=== PATIENT | female | born 1955 | race Caucasian/White ===

== ENCOUNTER → 2017-01-31 | Outpatient (CLI) | payer BC, OTHER ==
--- NOTE | 2017-01-31 15:12 | REPMRS ---
Patient History The patient states she had a clinical breast exam in 06/27 Patient is postmenopausal. Family history of unknown cancer in father at age 50 or over. Took hormonal contraceptives for 4 years. Taking unspecified hormones for 11 years. Digital Woman Screen Mammo: January 31, 2017 - Exam #: [id number] Bilateral CC and MLO view(s) were taken. Technologist: Reshma Barker, Technologist Prior study comparison: January 20, 2016, digital woman screen mammo performed at [facility]. January 13, 2015, digital woman screen mammo performed at [facility]. January 11, 2014, bilateral bilat screen digital mammo, performed at [facility] ([facility]). FINDINGS: There are scattered fibroglandular densities. There has been no change in the appearance of the mammogram from the prior studies. There is a mild amount of scattered fibroglandular density which is fairly symmetric. There is no interval development of dominant mass, architectural distortion, or clustered microcalcification suggestive of malignancy. ASSESSMENT: BI-RADS/ACR category 1 mammogram. Negative. Recommendation Routine screening mammogram in 1 year (for women over age 40). This mammogram was interpreted with the aid of an FDA-approved computer-aided dectection system. Electronically Signed By: Jassi Montes MD 01/31/17 [id number]
== END ==
LOC: M WHC 14:15
PROVIDERS: ATTEND Obstetrics & Gynecology
DX: Z12.31 Encounter for screening mammogram for malignant neoplasm of breast (principal); Z78.0 Asymptomatic menopausal state; Z92.0 Personal history of contraception

== ENCOUNTER → 2018-02-01 | Outpatient (CLI) | payer BC | LOC: M WHC 10:51 | DX: Z12.39 Encounter for other screening for malignant neoplasm of breast (principal) ==

== ENCOUNTER → 2018-05-02 | Outpatient (CLI) | payer BC | LOC: M WUC 12:25 | DX: M79.645 Pain in left finger(s) (principal) | CPT/HCPCS: 73140 ==

== ENCOUNTER → 2018-06-28 | Outpatient (REF) | payer BC ==
[2018-06-28 18:20] LABS: APPEARANCE, URINE CLEAR (CLEAR); BACTERIA, URINE AUTO 1+ (NEGATIVE); BILIRUBIN, URINE AUTO NEGATIVE (NEGATIVE); BLOOD, URINE BLOOD NEGATIVE (NEGATIVE); COLOR, URINE STRAW (YELLOW); GLUCOSE, URINE (UA) AUTO NEGATIVE (NEGATIVE); KETONE, URINE AUTO NEGATIVE (NEGATIVE); LEUKOCYTE ESTERASE, URINE AUTO NEGATIVE (NEGATIVE); NITRITE, URINE AUTO NEGATIVE (NEGATIVE); PROTEIN, URINE AUTO NEGATIVE (NEGATIVE); RBC, URINE AUTO 0 /HPF (0-3); SPECIFIC GRAVITY URINE AUTO 1.003 (1.002-1.035); SQUAMOUS EPITHELIAL CELL UR AU 1 /HPF (0-6); UROBILINOGEN, URINE AUTO 0.2 mg/dL (0.0-2.0); WBC, URINE AUTO 0 /HPF (0-3)
== END ==
LOC: M LAB REF 17:14
DX: N39.46 Mixed incontinence (principal)
CPT/HCPCS: 81001

== ENCOUNTER → 2019-02-02 | Outpatient (CLI) | payer BC ==
--- NOTE | 2019-02-02 14:28 | REPMRS ---
Patient History The patient states she had a clinical breast exam in 06/2018 Patient is postmenopausal. Took hormonal contraceptives for 4 years. Taking unspecified hormones for 13 years. 3D TOMOSYNTHESIS WAS PERFORMED. Digital Woman Screen Mammo: February 02, 2019 - Exam #: [id number] Bilateral CC and MLO view(s) were taken. Technologist: Reshma Barker, Technologist Prior study comparison: February 01, 2018, digital woman screen mammo performed at [facility]. January 31, 2017, digital woman screen mammo performed at [facility]. FINDINGS: The breast tissue is heterogeneously dense. This may lower the sensitivity of mammography. There has been no change in the appearance of the mammogram from the prior studies. There is a moderate amount of residual fibroglandular tissue which is fairly symmetric. There is no interval development of dominant mass, areas of architectural distortion, or clustered microcalcification typical of malignancy. Assessment: BI-RADS/ACR category 1 mammogram. Negative Mammogram. Recommendation Routine screening mammogram in 1 year (for women over age 40). This mammogram was interpreted with the aid of an FDA-approved computer-aided dectection system. Electronically Signed By: Blake George MD 02/02/19 [id number]
== END ==
LOC: M WHC 12:58
PROVIDERS: ATTEND Obstetrics & Gynecology
DX: Z12.31 Encounter for screening mammogram for malignant neoplasm of breast (principal)

== ENCOUNTER → 2019-07-11 | Outpatient (REF) | payer OTHER ==
[2019-07-11 12:48] LABS: BASO # 0.1 10^3/uL (0.0-0.2); BASO % 1.8 % (0.0-1.0); EOS # 0.2 10^3/uL (0.0-0.5); EOS % 3.6 % (0.0-3.0); HEMATOCRIT 43.8 % (36.0-47.0); HEMOGLOBIN 14.8 g/dl (12.0-15.5); LYMPH % 31.6 % (24.0-44.0); MEAN CORPUSCULAR HEMOGLOBIN 34.7 pg (27.0-33.0); MEAN CORPUSCULAR HGB CONC 33.8 g/dl (32.0-36.5); MEAN CORPUSCULAR VOLUME 102.6 fl (80.0-96.0); MONO # 0.8 10^3/uL (0.0-0.8); MONO % 13.1 % (0.0-5.0); NEUTROPHILS % 48.9 % (36.0-66.0); PLATELET COUNT, AUTOMATED 260 10^3/uL (150-450); RED BLOOD COUNT 4.27 10^6/uL (4.00-5.40); WHITE BLOOD COUNT 6.2 10^3/uL (4.0-10.0)
[2019-07-11 13:21] LABS: ALBUMIN 3.6 GM/DL (3.2-5.2); ALT/SGPT 28 U/L (12-78); BILIRUBIN,TOTAL 0.7 MG/DL (0.2-1.0); BLOOD UREA NITROGEN 13 MG/DL (7-18); CALCIUM LEVEL 8.9 MG/DL (8.8-10.2); CARBON DIOXIDE LEVEL 28 MEQ/L (21-32); CHLORIDE LEVEL 109 MEQ/L (98-107); CHOLESTEROL LEVEL 223 MG/DL (<200); CHOLESTEROL RISK RATIO 3.539 (<5); CREATININE FOR GFR 0.83 MG/DL (0.55-1.30); GLOMERULAR FILTRATION RATE > 60.0 (>45); GLUCOSE, FASTING 83 MG/DL (70-100); HDL CHOLESTEROL 63 MG/DL (>40); LDL CHOLESTEROL 133 MG/DL (<100); NON-HDL-C 160 MG/DL; POTASSIUM SERUM 4.2 MEQ/L (3.5-5.1); SODIUM LEVEL 141 MEQ/L (136-145); TOTAL PROTEIN 6.7 GM/DL (6.4-8.2); TRIGLYCERIDES LEVEL 134 MG/DL (<150)
== END ==
LOC: M SFHCADAM 11:11
PROVIDERS: ATTEND Family Medicine
DX: Z00.00 Encounter for general adult medical examination without abnormal findings (principal)

== ENCOUNTER → 2019-07-25 | Outpatient (CLI) | payer BC, OTHER ==
--- NOTE | 2019-07-26 05:33 | REP ---
Clinical: Lung screening. History smoking. Comparison: None Technique: Axial low-dose noncontrast images from the thoracic inlet to the upper abdomen using lung screening technique. Findings: Mild predominantly biapical scarring is appreciated. There is a 13 mm noncalcified nodular density in the left upper lobe (images 17 - 21). No consolidation. No pleural effusion/reaction or pneumothorax. Tracheobronchial tree is patent. Mediastinum demonstrates mild atherosclerotic changes of the coronary arteries without cardiomegaly. Impression: Lung-RADS category IV-a. 13 mm noncalcified nodular density in the left upper lobe is identified. 3-month follow-up chest CT is recommended. PET CT may be considered for further investigation as well. Electronically Signed by Jack Arthur MD 07/26/2019 05:25 A
== END ==
LOC: M RAD 09:43
PROVIDERS: ATTEND Family Medicine
DX: Z12.2 Encounter for screening for malignant neoplasm of respiratory organs (principal); F17.210 Nicotine dependence, cigarettes, uncomplicated

== ENCOUNTER → 2019-10-22 | Outpatient (REF) | payer OTHER ==
[2019-10-22 14:16] LABS: BLOOD UREA NITROGEN 17 MG/DL (7-18); CALCIUM LEVEL 9.3 MG/DL (8.8-10.2); CARBON DIOXIDE LEVEL 28 MEQ/L (21-32); CHLORIDE LEVEL 104 MEQ/L (98-107); CHOLESTEROL LEVEL 175 MG/DL (<200); CHOLESTEROL RISK RATIO 3.365 (<5); CREATININE FOR GFR 0.84 MG/DL (0.55-1.30); FOLATE > 24.0 NG/ML (>5.4); GLOMERULAR FILTRATION RATE > 60.0 (>45); GLUCOSE, FASTING 89 MG/DL (70-100); HDL CHOLESTEROL 52 MG/DL (>40); LDL CHOLESTEROL 102 MG/DL (<100); NON-HDL-C 123 MG/DL; POTASSIUM SERUM 3.6 MEQ/L (3.5-5.1); SODIUM LEVEL 139 MEQ/L (136-145); TRIGLYCERIDES LEVEL 107 MG/DL (<150); VITAMIN B12 LEVEL 521 PG/ML (247-911)
== END ==
LOC: M SFHCADAM 10:55
PROVIDERS: ATTEND Family Medicine
DX: D75.89 Other specified diseases of blood and blood-forming organs (principal); E78.5 Hyperlipidemia, unspecified; R91.1 Solitary pulmonary nodule

== ENCOUNTER → 2019-10-26 | Outpatient (CLI) | payer BC, OTHER ==
[~2019-10-26] MED LIST: ISOVUE-370 76% 100ML VIAL (Q9967) As Ordered ONE
--- NOTE | 2019-10-26 18:41 | REP ---
Clinical: Follow-up pulmonary nodule. Comparison: 07/25/2019. Findings: 13 mm nodular density in the left apex with subtle spiculated margins (images 22 - 27) is unchanged from prior examination. Stable chronic emphysematous changes and scattered scarring are also identified and unchanged. No further acute consolidation, nodule or mass lesion. No effusion. No pneumothorax. No significant adenopathy. Atherosclerotic changes to the aorta and coronary arteries noted without aortic aneurysm/dissection or cardiomegaly. No pericardial effusion. Skeletal structures without acute osseous abnormality. 1.3 cm left adrenal nodule is nonspecific. Impression: 1. Left upper lobe lesion measures 13 mm and is unchanged by sort term followup. Consider PET-CT or tissue sampling for further evaluation. 2. 1.3 cm nonspecific adrenal nodule may warrant pre/post contrast CT of the abdomen. Electronically Signed by Jack Arthur MD 10/26/2019 06:33 P
== END ==
LOC: M RAD 16:20
PROVIDERS: ATTEND Family Medicine
DX: R91.1 Solitary pulmonary nodule (principal)
CPT/HCPCS: 71260; Q9967

== ENCOUNTER → 2019-11-20 | Outpatient (CLI) | payer BC, OTHER ==
--- NOTE | 2019-11-20 15:55 | REP ---
PET/CT: History: Solitary pulmonary nodule. Left upper lobe. Comparisons: Comparison CT study of the chest is from October 26, 2019. TECHNIQUE: 57 minutes following the intravenous injection of a 8.04 mCi dose of F-18 FDG, three-dimensional PET scintigraphy is acquired from the skull base to the proximal thighs. Triplanar noncontrast CT scanning is acquired through the same anatomic range for attenuation correction, and image registration with scan parameters optimized to minimize radiation exposure to the patient. PET scintigraphy and CT datasets were fused and displayed on a workstation with multiplanar and projection display capability. PET/CT Findings: The spiculated nodule in the left upper lobe near the apex is hypermetabolic. Maximum standard uptake value is 5.90. There is no other abnormal hypermetabolic uptake in the chest. Head and neck soft tissues are unremarkable. In the abdomen and pelvis, normal hepatic, splenic, gastrointestinal, and genitourinary distribution of tracer is seen. No abnormal adrenal uptake is seen. There is no abnormal hypermetabolic uptake in the abdomen or pelvis. This scan is otherwise unremarkable. There is left colonic diverticulosis. Some vascular calcification is observed. Impression: The spiculated nodule in the left lung apex is hypermetabolic and should be considered suspicious for malignancy. Electronically Signed by Taz Montes MD 11/20/2019 04:38 P
== END ==
LOC: M PLARAD 09:27
PROVIDERS: ATTEND Internal Medicine Pulmonary Disease
DX: R91.1 Solitary pulmonary nodule (principal)
CPT/HCPCS: 78815; A9552

== ENCOUNTER → 2019-11-21 | Outpatient (CLI) | payer BC, OTHER ==
--- NOTE | 2019-11-22 03:59 | REP ---
Clinical: Adrenal nodule. Technique: Axial contrast enhanced images from the lung bases to the pubic symphysis using 100 ml Isovue 370 intravenous contrast material along with precontrast and 15-minute delayed images of the abdomen. Coronal and sagittal re-formations obtained. Findings: 1.4 cm left adrenal mass exhibits low density on noncontrast images as well as significant washout on delayed images compatible with benign adrenal adenoma. Liver, spleen, pancreas, gallbladder, right adrenal gland and bilateral kidneys are relatively normal. Few small 1-2 mm nonobstructing bilateral renal calculi are identified without perinephric stranding, or hydroureteronephrosis. The enteric system is without obstruction or acute inflammatory process. Normal terminal ileum and appendix are identified in the right lower quadrant. Colonic and Sigmoid diverticulosis noted without acute diverticulitis. Pelvis demonstrates normal bladder and age-appropriate uterus/adnexa. No pelvic fluid or ascites. No free air. No significant adenopathy. Abdominal aorta without aneurysm or dissection. Musculoskeletal structures demonstrate age-related degenerative changes without focal abnormality. Lung bases are clear. Impression: 1. Left adrenal lesion compatible with benign adenoma. 2. Colonic and sigmoid diverticulosis without acute diverticulitis. 3. Few bilateral nonobstructing intrarenal calculi measuring up to 2 mm. Electronically Signed by Jack Arthur MD 11/22/2019 03:51 A
== END ==
LOC: M RAD 13:54
PROVIDERS: ATTEND Family Medicine
DX: E27.8 Other specified disorders of adrenal gland (principal)
CPT/HCPCS: 74178; Q9967

== ENCOUNTER → 2019-11-23 | Outpatient (CLI) | payer BC, OTHER ==
[2019-11-23 20:12] LABS: PLATELET COUNT, AUTOMATED 273 10^3/uL (150-450)
[2019-11-23 20:23] LABS: PROTHROMBIN TIME 12.9 SECONDS (11.8-14.0)
[2019-11-23 20:24] LABS: PARTIAL THROMBOPLASTIN TIME 26.5 SECONDS (25.0-38.4)
== END ==
LOC: M WUC 17:23
PROVIDERS: ATTEND Internal Medicine Pulmonary Disease
DX: R91.1 Solitary pulmonary nodule (principal)

== ENCOUNTER 2019-12-05 20:02 | Emergency (ER) | payer BC, OTHER ==
[~2019-12-05] VITALS: Ht 160 cm; Wt 159.0 kg
[~2019-12-05 20:02] MED LIST changes: +GARL500C10 PO; -ISOVUE-370 76% 100ML VIAL (Q9967) As Ordered ONE; +LOVA40TA PO; +MULT1TAB8 PO; +POTASSIUM 99 MG PO; +PREM0.3T2 PO; +PROP80CA PO; +TRIA37.5; +VITA500T PO
[2019-12-05] MEDS ORDERED: NS 1,000 ML IV SCH (20:23)
[2019-12-05] MEDS ORDERED: ACETAMINOPHEN 325 MG TAB PO ONE (20:30)
[2019-12-05] MEDS ORDERED: COMBIVENT RESPIMAT 100-20MCG INHALER 4GM INH ONE (20:30)
[2019-12-05 20:43] LABS: BASO % 0.4 % (0.0-1.0); EOS % 0.3 % (0.0-3.0); HEMATOCRIT 46.1 % (36.0-47.0); HEMOGLOBIN 16.1 g/dl (12.0-15.5); LYMPH # 1.1 10^3/uL (1.5-5.0); LYMPH % 15.7 % (24.0-44.0); MEAN CORPUSCULAR HEMOGLOBIN 34.2 pg (27.0-33.0); MEAN CORPUSCULAR HGB CONC 34.9 g/dl (32.0-36.5); MEAN CORPUSCULAR VOLUME 97.9 fl (80.0-96.0); MONO % 14.4 % (0.0-5.0); NEUTROPHILS # 4.7 10^3/uL (1.5-8.5); NEUTROPHILS % 68.9 % (36.0-66.0); PLATELET COUNT, AUTOMATED 197 10^3/uL (150-450); RED BLOOD COUNT 4.71 10^6/uL (4.00-5.40); VENOUS BASE EXCESS 0.9 (-2.0-2.0); VENOUS HCO3 26.6 MEQ/L (23.0-27.0); VENOUS O2 SATURATION 81.1 % (60.0-80.0); VENOUS PARTIAL PRESSURE CO2 46.4 mmHg (38.0-50.0); VENOUS PARTIAL PRESSURE O2 44.3 mmHg (30.0-50.0); VENOUS PH 7.377 UNITS (7.330-7.430); VENOUS STANDARD HCO3 24.8 MEQ/L; VENOUS TOTAL CO2 28.1 MEQ/L (24.0-28.0); WHITE BLOOD COUNT 6.8 10^3/uL (4.0-10.0)
[2019-12-05 21:12] LABS: ALBUMIN 3.6 GM/DL (3.2-5.2); ALT/SGPT 32 U/L (12-78); BILIRUBIN,DIRECT 0.2 MG/DL (0.0-0.2); BILIRUBIN,TOTAL 0.4 MG/DL (0.2-1.0); BLOOD UREA NITROGEN 11 MG/DL (7-18); CALCIUM LEVEL 8.7 MG/DL (8.8-10.2); CARBON DIOXIDE LEVEL 27 MEQ/L (21-32); CHLORIDE LEVEL 101 MEQ/L (98-107); CREATININE FOR GFR 0.94 MG/DL (0.55-1.30); GLOMERULAR FILTRATION RATE > 60.0 (>45); GLUCOSE, FASTING 126 MG/DL (70-100); POTASSIUM SERUM 3.4 MEQ/L (3.5-5.1); SODIUM LEVEL 138 MEQ/L (136-145); TOTAL PROTEIN 6.9 GM/DL (6.4-8.2)
[2019-12-05 22:14] VITALS: BP 118/63
--- NOTE | 2019-12-05 22:33 | ECGEPIP ---
[facility] - ED Test Date: 2019-12-05 Pat Name: LAURE BLANTON Department: Room: - Gender: Female [place] Ripper: CARMEN : 1955 Requested By: SNOW RADFORD Order Number: [id number] Reading MD: Daniel Marx Measurements Intervals Venus Rate: 85 P: -5 TX: 159 QRS: -42 QRSD: 79 T: 2 QT: 373 QTc: 445 Interpretive Statements SINUS RHYTHM LEFT AXIS DEVIATION PATTERN CONSISTENT WITH PULMONARY DISEASE NO PRIORS FOR COMPARISON Electronically Signed on 12-05-2019 22:32:43 EDT by Daniel Marx
--- NOTE | 2019-12-06 08:29 | REP ---
PORTABLE CHEST X-RAY: SINGLE VIEW. HISTORY: Dyspnea and cough. FINDINGS: EKG monitoring electrodes overlie the chest. There is a zone of mild linear plate-like atelectasis at the left base. Lung hardwick are otherwise clear. Pleural angles are sharp. The thoracic aorta is somewhat tortuous. The heart is not enlarged. Pulmonary vasculature is not increased. The spiculated nodular opacity seen on recent chest CT study in the left lung apex is not visible on today's plain radiograph. IMPRESSION: Minimal linear plate-like atelectasis left base. Otherwise no acute disease. Electronically Signed by Taz Montes MD 12/06/2019 10:59 A
== END 2019-12-05 22:15 | disposition home or self-care (01) ==
LOC: M ED 20:02 → EDBD 20:02 → M ED 22:15
DX: R06.02 Shortness of breath (principal); R05 Cough; B34.9 Viral infection, unspecified; C34.90 Malignant neoplasm of unspecified part of unspecified bronchus or lung; I10 Essential (primary) hypertension; E78.5 Hyperlipidemia, unspecified; Z79.899 Other long term (current) drug therapy; Z88.5 Allergy status to narcotic agent; Z87.891 Personal history of nicotine dependence

== ENCOUNTER → 2020-01-23 | Outpatient (CLI) | payer MEDICARE, BC, OTHER ==
[~2020-01-23] MED LIST changes: +ALLE1TAB23 PO; -GARL500C10 PO; +GARL500C2 PO; +HM P99TA PO; +LIDOCAINE 1% MDV 20ML VIAL As Ordered ONE; +MYRB25TA PO; -TRIA37.5; +TRIA37.5 PO; +VITA-243 PO; +VITA50005 PO; -VITA500T PO
[2020-01-23 08:17] LABS: HEMOGLOBIN 15.1 g/dl (12.0-15.5); MEAN CORPUSCULAR HEMOGLOBIN 34.4 pg (27.0-33.0); MEAN CORPUSCULAR HGB CONC 35.1 g/dl (32.0-36.5); MEAN CORPUSCULAR VOLUME 97.9 fl (80.0-96.0); PLATELET COUNT, AUTOMATED 256 10^3/uL (150-450); RED BLOOD COUNT 4.39 10^6/uL (4.00-5.40); WHITE BLOOD COUNT 7.1 10^3/uL (4.0-10.0)
[2020-01-23 08:23] LABS: INR 0.95; PROTHROMBIN TIME 12.4 SECONDS (11.8-14.0)
[2020-01-23 08:44] LABS: ALBUMIN 3.5 GM/DL (3.2-5.2); ALT/SGPT 31 U/L (12-78); BILIRUBIN,TOTAL 0.7 MG/DL (0.2-1.0); BLOOD UREA NITROGEN 15 MG/DL (7-18); CALCIUM LEVEL 8.5 MG/DL (8.8-10.2); CARBON DIOXIDE LEVEL 28 MEQ/L (21-32); CHLORIDE LEVEL 108 MEQ/L (98-107); GLOMERULAR FILTRATION RATE > 60.0 (>45); GLUCOSE, FASTING 106 MG/DL (70-100); POTASSIUM SERUM 3.6 MEQ/L (3.5-5.1); SODIUM LEVEL 142 MEQ/L (136-145); TOTAL PROTEIN 6.8 GM/DL (6.4-8.2)
--- NOTE | 2020-01-23 10:29 | REP ---
CHEST, SINGLE VIEW: Single view of the chest is performed status post left lung biopsy. There is a relatively small left apical pneumothorax. The air gap is 4.9 cm. Followup will be performed. Electronically Signed by Blake George MD 01/23/2020 12:47 P
--- NOTE | 2020-01-23 12:29 | REP ---
CHEST SINGLE VIEW: Single view of the chest is performed status post lung biopsy. Comparison made with prior exam the same day. There is no change in the relatively small left apical pneumothorax. Lung hardwick are unchanged. Electronically Signed by Blake George MD 01/23/2020 12:51 P
--- NOTE | 2020-01-23 14:21 | REP ---
CHEST, SINGLE VIEW: Single view of the chest is performed in the expiratory phase of respiration and compared to prior exams of the same day. The small left apical pneumothorax has mildly decreased in size. Air-gap at the apex is 3.8 cm, previously 5 cm. No other acute findings are seen. Electronically Signed by Blake George MD 01/23/2020 03:34 P
[2020-01-23 14:22] VITALS: BP 148/83
--- NOTE | 2020-01-23 16:37 | REP ---
CT-GUIDED LEFT UPPER LOBE LUNG BIOPSY The procedure was performed under the direct supervision of Dr. George. The patient has a history of a 1.3 cm nodule density in the left apex was subtle spiculated margins seen on a previous CT scan dated 10/26/2019. The risks and benefits of the procedure were explained to the patient and informed consent was obtained. The left upper lobe lung nodule was localized using CT guidance. The skin was prepped and draped in a sterile fashion. 1% lidocaine was used as a local anesthetic. Using CT guidance a 19/20 gauge coaxial needle biopsy system was inserted and advanced into the nodule. Four core biopsy samples were obtained and sent to lab. CT images obtained after biopsy show a very tiny left pneumothorax. Chest x-ray performed immediately after the procedure shows a relatively small left apical pneumothorax. Chest x-ray performed 2 hours later shows no change in the size of the pneumothorax. Another chest for a was performed to hours later and demonstrates that the pneumothorax had mildly decreased in size. The patient's vital signs were stable. Her O2 saturations were 97% on room air. The patient had some discomfort at the level of three out of 10 initially that then subsided. The patient tolerated the procedure well. After the appropriate amount of monitored convalescence the patient was discharged from the department. Electronically Signed by DALILA Bai 01/23/2020 04:00 P Electronically Signed by Blake George MD 01/23/2020 04:28 P
== END ==
LOC: M IRPRO 07:44
PROVIDERS: ATTEND Internal Medicine Pulmonary Disease
DX: C34.12 Malignant neoplasm of upper lobe, left bronchus or lung (principal); J95.811 Postprocedural pneumothorax; Z79.899 Other long term (current) drug therapy; Z79.891 Long term (current) use of opiate analgesic

== ENCOUNTER → 2020-03-12 | Outpatient (CLI) | payer MEDICARE, BC, OTHER ==
[~2020-03-12] MED LIST changes: +ATOR40TA75 PO; +DOCU-129 PO; +HYDR-3715 PO; -LIDOCAINE 1% MDV 20ML VIAL As Ordered ONE
[2020-03-12 13:40] LABS: HEMATOCRIT 44.9 % (36.0-47.0); HEMOGLOBIN 15.5 g/dl (12.0-15.5); MEAN CORPUSCULAR HEMOGLOBIN 34.4 pg (27.0-33.0); MEAN CORPUSCULAR HGB CONC 34.5 g/dl (32.0-36.5); MEAN CORPUSCULAR VOLUME 99.8 fl (80.0-96.0); PLATELET COUNT, AUTOMATED 253 10^3/uL (150-450); WHITE BLOOD COUNT 10.3 10^3/uL (4.0-10.0)
[2020-03-12 13:52] LABS: ABG BASE EXCESS 1.9 (-2.0-2.0); ABG HCO3 26.1 MEQ/L (22.0-26.0); ABG O2 SATURATION 96.7 % (95.0-99.0); ABG PARTIAL PRESSURE CO2 39.5 mmHg (35.0-45.0); ABG PARTIAL PRESSURE O2 83.8 mmHg (75.0-100.0); ABG STANDARD HCO3 26.1 MEQ/L (22.0-26.0); ABG TOTAL CO2 27.3 MEQ/L (23.0-31.0); ABG pH (ARTERIAL) 7.438 UNITS (7.350-7.450)
[2020-03-12 13:56] LABS: APPEARANCE, URINE HAZY (CLEAR); BACTERIA, URINE AUTO 2+ (NEGATIVE); BILIRUBIN, URINE AUTO NEGATIVE (NEGATIVE); BLOOD, URINE BLOOD NEGATIVE (NEGATIVE); COLOR, URINE YELLOW (YELLOW); GLUCOSE, URINE (UA) AUTO NEGATIVE (NEGATIVE); KETONE, URINE AUTO NEGATIVE (NEGATIVE); LEUKOCYTE ESTERASE, URINE AUTO TRACE (NEGATIVE); NITRITE, URINE AUTO NEGATIVE (NEGATIVE); PROTEIN, URINE AUTO NEGATIVE (NEGATIVE); RBC, URINE AUTO 0 /HPF (0-3); SPECIFIC GRAVITY URINE AUTO 1.014 (1.002-1.035); SQUAMOUS EPITHELIAL CELL UR AU 2 /HPF (0-6); UROBILINOGEN, URINE AUTO 0.2 mg/dL (0.0-2.0); WBC, URINE AUTO 1 /HPF (0-3)
[2020-03-12 14:01] LABS: BLOOD UREA NITROGEN 14 MG/DL (7-18); CALCIUM LEVEL 9.7 MG/DL (8.8-10.2); CARBON DIOXIDE LEVEL 31 MEQ/L (21-32); CHLORIDE LEVEL 107 MEQ/L (98-107); GLOMERULAR FILTRATION RATE > 60.0 (>45); GLUCOSE, FASTING 84 MG/DL (70-100); POTASSIUM SERUM 3.6 MEQ/L (3.5-5.1); SODIUM LEVEL 142 MEQ/L (136-145)
[2020-03-12 14:03] LABS: INR 0.96; PROTHROMBIN TIME 12.5 SECONDS (11.8-14.0)
[2020-03-12 14:04] LABS: PARTIAL THROMBOPLASTIN TIME 26.1 SECONDS (25.0-38.4)
--- NOTE | 2020-03-12 14:39 | REP ---
Clinical: History of lung cancer . Comparison: 12/05/2019 . Technique: PA and lateral. Findings: The mediastinum and cardiac silhouette are normal. The lung hardwick are clear and without acute consolidation, effusion, or pneumothorax. The skeletal structures are intact and normal. Impression: 1. No acute cardiopulmonary process. Electronically Signed by Jack Arthur MD 03/12/2020 02:30 P
--- NOTE | 2020-03-13 08:45 | ECGEPIP ---
[facility] Test Date: 2020-03-12 Pat Name: LAURE BLANTON Department: Room: - Gender: Female [place] Former: JAVIER : 1955 Requested By: Ronny Pulliam Order Number: [id number] Reading MD: Loretta Fonseca Measurements Intervals Burke Rate: 67 P: 12 CO: 174 QRS: -31 QRSD: 82 T: 23 QT: 403 QTc: 428 Interpretive Statements SINUS RHYTHM MARKED LEFT AXIS DEVIATION PATTERN CONSISTENT WITH PULMONARY DISEASE SIMILAR TO 12/05/19 Electronically Signed on 03-13-2020 8:45:42 EDT by Loretta Fonseca
== END ==
LOC: M ADMPAT 12:49
PROVIDERS: ATTEND Thoracic Surgery (Cardiothoracic Vascular Surgery)
DX: C34.12 Malignant neoplasm of upper lobe, left bronchus or lung (principal)

== ENCOUNTER → 2020-03-13 | Outpatient (CLI) | payer MEDICARE, BC, OTHER ==
--- NOTE | 2020-03-13 11:03 | REP ---
Clinical: Left upper lobe neoplasm. Technique: Axial noncontrast images from the thoracic inlet to the upper abdomen with coronal and sagittal re-formations. Comparison: 10/26/2019. Findings: Medial apical left upper lobe lesion is essentially unchanged and again measures approximately 17 x 8 x 12 mm. Remainder of lung hardwick are essentially clear. Small focal area of subpleural scarring in the posterior right lower lobe is unchanged. No effusion. Tracheobronchial tree is patent. No significant adenopathy identified. Stable atherosclerotic changes to the thoracic aorta and coronary arteries noted without aortic aneurysm or cardiomegaly. No pericardial effusion. Surrounding musculoskeletal structures without focal osseous abnormality. A 1.3 cm left adrenal adenoma is again noted. Impression: The left apical density remains stable compared with 10/26/2019. No further acute mediastinal or pleuroparenchymal process appreciated. Stable left adrenal adenoma. Electronically Signed by Jack Arthur MD 03/13/2020 10:54 A
== END ==
LOC: M RAD 10:06
PROVIDERS: ATTEND Thoracic Surgery (Cardiothoracic Vascular Surgery)
DX: C34.12 Malignant neoplasm of upper lobe, left bronchus or lung (principal)

== ENCOUNTER → 2020-03-13 | Outpatient (CLI) | payer MEDICARE, BC, OTHER | LOC: M LABSMTC 09:52 | PROVIDERS: ATTEND Anesthesiology | DX: Z01.818 Encounter for other preprocedural examination (principal); Z11.59 Encounter for screening for other viral diseases ==

== ENCOUNTER 2020-03-17 07:07 | Inpatient (IN) | payer MEDICARE, BC, OTHER ==
[2020-03-17] VITALS (40 sets, daily range): BP systolic 80–129; BP diastolic 45–79; O2SAT 98
[~2020-03-17] VITALS: Ht 160 cm; Wt 73.9 kg
[~2020-03-17 07:07] MED LIST changes: -HYDR-3715 PO; +LR 1,000 ML IV ONE; +MUPIROCIN 2% OINT 22 GM TUBE TOP ONE; +ceFAZolin SOD 2 GM in IV 1 EA IV ONE
[2020-03-17] MEDS ORDERED: BUPIVACAINE HCL 0.5% 10ML VIAL As Ordered ONE (07:21)
[2020-03-17] MEDS ORDERED: CETACAINE SPRAY 5GM As Ordered ONE (07:22)
[2020-03-17] MEDS ORDERED: THROMBIN SOLN 20,000 UNITS KIT As Ordered ONE (07:22)
[2020-03-17] MEDS ORDERED: BUPIVACAINE LIPOSOME/PF 1.3% 20ML VIAL (13.3MG/ML)(EXPAREL)(C9290 PER1MG) As Ordered ONE (07:22)
[2020-03-17] MEDS ORDERED: LACRILUBE (AKWA TEARS) OPHTH OINT 3.5 GM As Ordered ONE (07:41)
[2020-03-17] MEDS ORDERED: PHENYLEPHRINE 10MG/ML 1ML VIAL (J2370 PER 1) As Ordered ONE ×2 (07:46→13:55)
[2020-03-17] MEDS ORDERED: LIDOCAINE 2% 100MG/5ML SDV (FOR ANES.) As Ordered ONE (07:47)
[2020-03-17] MEDS ORDERED: dexameTHASONE 4 MG/ML 1ML VIAL (J1100 PER 1MG) As Ordered ONE (07:47)
[2020-03-17] MEDS ORDERED: ROCURONIUM BROMIDE 50 MG/5 ML VIAL As Ordered ONE ×3 (07:47→11:10)
[2020-03-17] MEDS ORDERED: propofoL 200 MG/20 ML VIAL As Ordered ONE (07:47)
[2020-03-17] MEDS ORDERED: BUPIVACAINE HCL 0.25% 30ML VIAL As Ordered ONE (07:47)
[2020-03-17] MEDS ORDERED: MIDAZOLAM INJ 2MG/2ML VIAL (J2250 PER 1MG) As Ordered ONE ×2 (07:53→08:01)
[2020-03-17] MEDS ORDERED: fentaNYL 100 MCG/2 ML INJECTION (J3010) As Ordered ONE ×3 (07:53→10:54)
[2020-03-17] MEDS ORDERED: KETAMINE HCL 200 MG/20 ML VIAL As Ordered ONE (07:54)
[2020-03-17] MEDS ORDERED: fentaNYL 100 MCG/2 ML INJECTION (J3010) IV ONE (08:45)
[2020-03-17] MEDS ORDERED: MIDAZOLAM INJ 2MG/2ML VIAL (J2250 PER 1MG) IV ONE (08:45)
[2020-03-17] MEDS ORDERED: GLYCOPYRROLATE INJ 0.2 MG/ML 2 ML VIAL As Ordered ONE (09:30)
[2020-03-17] MEDS ORDERED: KETOROLAC 60MG 2ML VIAL As Ordered ONE (10:24)
[2020-03-17] MEDS ORDERED: SUGAMMADEX SODIUM 500 MG/5 ML VIAL (BRIDION) As Ordered ONE (10:24)
[2020-03-17] MEDS ORDERED: ONDANSETRON 4MG/2ML VIAL As Ordered ONE (10:24)
[2020-03-17] MEDS ORDERED: ACETAMINOPHEN 1000MG 100ML IV BTL (OFIRMEV) (J0131 PER 10MG) As Ordered ONE (10:25)
[2020-03-17] MEDS ORDERED: PHENYLephrine HCL 500 MCG/5 ML (100MCG/ML) SYRINGE (J2370) As Ordered ONE (10:27)
[2020-03-17] MEDS ORDERED: ePHEDrine SULFATE 25 MG/5 ML(5MG/ML) SYRINGE As Ordered ONE (10:27)
[2020-03-17] MEDS ORDERED: METOCLOPRAMIDE INJ 10MG/2ML VIAL (J2765 PER 1) IV PRN (11:00)
[2020-03-17] MEDS ORDERED: NALOXONE INJ 0.4MG/1ML VIAL (J2310 PER 1MG) IV PRN (11:00)
[2020-03-17] MEDS ORDERED: WALLBOXKEY XX PRN (11:00)
[2020-03-17] MEDS ORDERED: EPIDURAL/PCA KEYS XX PRN (11:00)
[2020-03-17] MEDS ORDERED: ceFAZolin 2 GM/D5W 50 ML IV BAG (J0690 PER 500MG) As Ordered ONE (12:41)
[2020-03-17] MEDS ORDERED: PERCOCET 5MG/325MG TAB PO PRN ×2 (13:00)
[2020-03-17] MEDS ORDERED: BISACODYL 10 MG SUPP PR PRN (13:00)
[2020-03-17] MEDS ORDERED: ACETAMINOPHEN TAB 650MG DOSE (2X325MG) PO PRN (13:00)
[2020-03-17] MEDS ORDERED: LEVALBUTEROL 1.25 MG/0.5 ML CONCENTRATE NEB NEB PRN (13:00)
[2020-03-17] MEDS ORDERED: NORCO, ANEXSIA 5/325MG TABLET (HYDROcodone/ACETAMINOPHEN) PO PRN (13:00)
[2020-03-17 13:31] LABS: ABG BASE EXCESS -0.9 (-2.0-2.0); ABG HCO3 24.4 MEQ/L (22.0-26.0); ABG O2 SATURATION 99.2 % (95.0-99.0); ABG PARTIAL PRESSURE CO2 42.5 mmHg (35.0-45.0); ABG STANDARD HCO3 23.8 MEQ/L (22.0-26.0); ABG TOTAL CO2 25.7 MEQ/L (23.0-31.0); ABG pH (ARTERIAL) 7.376 UNITS (7.350-7.450)
[2020-03-17 13:39] LABS: BASO # 0.1 10^3/uL (0.0-0.2); BASO % 0.4 % (0.0-1.0); EOS % 0.1 % (0.0-3.0); LYMPH # 0.9 10^3/uL (1.5-5.0); LYMPH % 8.1 % (24.0-44.0); MEAN CORPUSCULAR HEMOGLOBIN 34.1 pg (27.0-33.0); MEAN CORPUSCULAR VOLUME 97.3 fl (80.0-96.0); MONO # 0.3 10^3/uL (0.0-0.8); MONO % 2.3 % (0.0-5.0); NEUTROPHILS # 10.2 10^3/uL (1.5-8.5); NEUTROPHILS % 88.6 % (36.0-66.0); PLATELET COUNT, AUTOMATED 223 10^3/uL (150-450); RED BLOOD COUNT 4.11 10^6/uL (4.00-5.40); WHITE BLOOD COUNT 11.5 10^3/uL (4.0-10.0)
[2020-03-17] MEDS ORDERED: ONDANSETRON 4MG/2ML VIAL IV PRN (13:45)
[2020-03-17] MEDS: FENTANYL/BUPIVACAINE/NACL BAG 250 ML EPIDURAL SCH (13:55)
[2020-03-17] MEDS: fentaNYL 100 MCG/2 ML INJECTION (J3010) IV PRN ×4 (13:55→14:11)
[2020-03-17] MEDS ORDERED: PHENYLEPHRINE HCL INJ 10 MG in D5W 100 ML IV SCH (14:00)
[2020-03-17] MEDS: LEVALBUTEROL 1.25 MG/0.5 ML CONCENTRATE NEB NEB SCH ×2 (14:00→20:36)
[2020-03-17] MEDS: KCL 20MEQ IN D5/NS 1000ML 1,000 ML IV SCH (14:04)
[2020-03-17 14:05] LABS: BLOOD UREA NITROGEN 13 MG/DL (7-18); CALCIUM LEVEL 8.4 MG/DL (8.8-10.2); CARBON DIOXIDE LEVEL 24 MEQ/L (21-32); CHLORIDE LEVEL 108 MEQ/L (98-107); CREATININE FOR GFR 0.78 MG/DL (0.55-1.30); GLOMERULAR FILTRATION RATE > 60.0 (>45); GLUCOSE, FASTING 143 MG/DL (70-100); POTASSIUM SERUM 3.2 MEQ/L (3.5-5.1); SODIUM LEVEL 139 MEQ/L (136-145)
--- NOTE | 2020-03-17 15:49 | REP ---
REASON: Status post left upper lobectomy. COMPARISON: Preoperative examination of 03/12/2020. The technique utilized in obtaining the radiograph has magnified the cardiac silhouette and accentuated the interstitial markings. Two left-sided thoracotomy tubes are noted, the tips of which are in the lung apical region. The cardiomediastinal silhouette is within normal limits. There is minimal left apical capping likely postoperative. There is no significant pneumothorax seen on this portable exam. There is subtle left-sided subcutaneous emphysema. The lung hardwick are otherwise clear. Electronically Signed by Wilbert Harvey DO 03/17/2020 04:16 P
[2020-03-17] MEDS: ceFAZolin SOD 1 GM in D5W MINI-BAG PLUS 50 ML IV SCH (16:09)
[2020-03-17] MEDS: PANTOPRAZOLE 40MG TAB (PROTONIX) PO SCH (16:09)
[2020-03-17] MEDS: KETOROLAC 30 MG/ML 1ML VIAL IV SCH ×2 (16:09→22:03)
[2020-03-17] MEDS: ASCORBIC ACID 500 MG TAB PO SCH (16:09)
[2020-03-17] MEDS: PROPRANOLOL 80 MG LA CAP PO SCH (19:54)
[2020-03-17] MEDS: DOCUSATE SODIUM 100 MG CAP PO SCH (20:14)
[2020-03-17] MEDS: ATORVASTATIN 20 MG TAB PO SCH (20:15)
[2020-03-17] MEDS: HEPARIN SOD (PORCINE) 5000UNITS/ML VIAL (J1644 PER 1000UNITS) SC SCH (20:15)
[2020-03-17] MEDS: ONDANSETRON 4MG/2ML VIAL IV PRN (22:09)
[2020-03-18] VITALS (30 sets, daily range): BP systolic 92–138; BP diastolic 52–72
[2020-03-18] MEDS: KCL 20MEQ IN D5/NS 1000ML 1,000 ML IV SCH (01:07)
[2020-03-18] MEDS: ceFAZolin SOD 1 GM in D5W MINI-BAG PLUS 50 ML IV SCH ×3 (01:07→17:11)
[2020-03-18] MEDS: LEVALBUTEROL 1.25 MG/0.5 ML CONCENTRATE NEB NEB SCH ×4 (02:19→20:15)
[2020-03-18] MEDS: KETOROLAC 30 MG/ML 1ML VIAL IV SCH (04:19)
[2020-03-18 04:49] LABS: BASO % 0.1 % (0.0-1.0); HEMATOCRIT 36.3 % (36.0-47.0); HEMOGLOBIN 12.5 g/dl (12.0-15.5); LYMPH # 1.6 10^3/uL (1.5-5.0); LYMPH % 9.1 % (24.0-44.0); MEAN CORPUSCULAR HGB CONC 34.4 g/dl (32.0-36.5); MEAN CORPUSCULAR VOLUME 98.6 fl (80.0-96.0); MONO # 1.8 10^3/uL (0.0-0.8); MONO % 10.1 % (0.0-5.0); NEUTROPHILS # 14.2 10^3/uL (1.5-8.5); NEUTROPHILS % 80.2 % (36.0-66.0); PLATELET COUNT, AUTOMATED 224 10^3/uL (150-450); RED BLOOD COUNT 3.68 10^6/uL (4.00-5.40); WHITE BLOOD COUNT 17.7 10^3/uL (4.0-10.0)
[2020-03-18 04:56] LABS: BLOOD UREA NITROGEN 8 MG/DL (7-18); CALCIUM LEVEL 7.9 MG/DL (8.8-10.2); CARBON DIOXIDE LEVEL 24 MEQ/L (21-32); CHLORIDE LEVEL 110 MEQ/L (98-107); CREATININE FOR GFR 0.73 MG/DL (0.55-1.30); GLOMERULAR FILTRATION RATE > 60.0 (>45); GLUCOSE, FASTING 128 MG/DL (70-100); POTASSIUM SERUM 3.6 MEQ/L (3.5-5.1); SODIUM LEVEL 143 MEQ/L (136-145)
[2020-03-18 05:58] LABS: ABG HCO3 21.1 MEQ/L (22.0-26.0); ABG O2 SATURATION 98.5 % (95.0-99.0); ABG PARTIAL PRESSURE CO2 34.8 mmHg (35.0-45.0); ABG PARTIAL PRESSURE O2 115.1 mmHg (75.0-100.0); ABG TOTAL CO2 22.2 MEQ/L (23.0-31.0); ABG pH (ARTERIAL) 7.401 UNITS (7.350-7.450)
[2020-03-18] MEDS: DOCUSATE SODIUM 100 MG CAP PO SCH ×2 (08:23→20:19)
[2020-03-18] MEDS: ASCORBIC ACID 500 MG TAB PO SCH (08:23)
[2020-03-18] MEDS: PANTOPRAZOLE 40MG TAB (PROTONIX) PO SCH (08:23)
[2020-03-18] MEDS: HEPARIN SOD (PORCINE) 5000UNITS/ML VIAL (J1644 PER 1000UNITS) SC SCH ×2 (08:24→20:19)
[2020-03-18] MEDS: POTASSIUM CHLORIDE 10 MEQ SR TABLET PO SCH (08:24)
[2020-03-18] MEDS: MOM 30ML SUSPENSION UDC PO SCH (09:00)
--- NOTE | 2020-03-18 09:09 | RO ---
DATE OF PROCEDURE: 03/17/2020 PREPROCEDURE DIAGNOSIS: Lung cancer, non-small cell carcinoma favoring adenocarcinoma [id number] with clinical Stage IA2. POSTPROCEDURE DIAGNOSIS: Lung cancer, non-small cell carcinoma favoring adenocarcinoma [id number] with clinical Stage IA2. PROCEDURE: Left upper lobectomy, mediastinal lymphadenectomy, five-level rib block, and bronchoscopy. SURGEON: Ronny Cabrera MD ASSISTANTS: ANESTHESIA: FINDINGS: The fissure was mostly complete, but there was approximately 1 cm tissue between the bottom of the fissure and the pulmonary arteries. There is about a 1.5-2 cm lesion in the left upper lobe, which could be easily palpated. DESCRIPTION OF PROCEDURE: Under satisfactory general anesthesia and single-lumen tube endotracheal intubation, the bronchoscope was placed in the tracheobronchial tree. The patient had a number of thick copious secretions that were all suction aspirated. She had a normal branching tracheobronchial tree and there were no endobronchial lesions. The patient was then turned into the right lateral decubitus position and prepped and draped in the usual sterile fashion. A posterolateral thoracotomy incision was then made and the chest was entered at the 5th intercostal space. Latissimus dorsi was divided and serratus was also divided. Rectractor was placed. It was noted that there were adhesions to the anterior thorax in the left lower lobe. This was taken down by electrocautery and by Omena stapler. This then freed the lung up and dissection was started posteriorly along the course of intralobar pulmonary artery after retracting the lung upwards. Once this plane was developed, attention was then turned to the major fissure and a slow tedious dissection in order to find the pulmonary artery and the fissure ensued. There were numerous bridging veins that had to be either cauterized or coagulated with the Harmonic scalpel. Finally the intralobar pulmonary artery was found in the fissure and the posterior fissure was then completed by use of an Omena stapler. This then opened up the intralobar pulmonary artery, which was then dissected all the way up to the hilum. There were three small vessels coming off the upper lobe and these were carefully dissected and divided by use of a vascular stapler. This then left a large truncal artery at the very apex. This was gently and gingerly dissected. Finally after a careful tedious dissection the artery was dissected by use of a vascular stapler. This then left a vein in the bronchus. The inferior pulmonary ligament was released in order to identify the inferior pulmonary vein. The confluence between the upper and lower pulmonary veins were then ascertained. There was very little space between the two major structures. Nonetheless, with gentle sharp and blunt dissection the superior pulmonary vein could be then surrounded with a vessel loop and divided by use of a vascular stapler. This then left the bronchus. All the nodes were swept onto the bronchus and was divided by use of an Omena stapler. It was ascertained that the lower lobe would inflate after closing the stapler. Attention was then turned to the mediastinal space between the aorta and pulmonary artery. This was extensively dissected and there were numerous what looked to be anthracotic nodes. These were removed with a Harmonic scalpel. Care was taken to preserve the phrenic nerve. It was noted throughout the case that she had numerous and brisk venous bleeding from her systemic veins. The bronchus was tested at 37 cm of water and was found to be intact. Tisseel glue was applied to the mediastinal dissection space as well as to the staple lines and the vessel staple lines. Two chest tubes were placed, #24 curved posteriorly and anteriorly respectively. Five-level rib block consisting of 0.25% Marcaine and Exparel was instilled. The ribs were closed with figure-of-8 pericostal #1 Prolene sutures. The extrathoracic muscles were closed with running #0 Vicryl suture. The subcutaneous tissue closed with running #3-0 Vicryl suture and the skin was closed with running #3-0 Monopril subcuticular suture. Patient tolerated the procedure well and left the operating room in satisfactory condition to the recovery room.
[2020-03-18] MEDS: FENTANYL/BUPIVACAINE/NACL BAG 250 ML EPIDURAL SCH (10:42)
--- NOTE | 2020-03-18 10:55 | IPN ---
DATE: 03/18/2020 This is the first postoperative day for Mrs. Yen. She has had a stable night of surgery with some minimal pain in her left shoulder. Her vital signs show a maximum temperature (Tmax) of 98.1 with a heart rate that ranges between 85-80 in a sinus rhythm, respiratory rate of 18-16 without the use of accessory muscles, who is 95% saturated on 2 liters nasal cannula and whose blood pressure is ranging between 128/86-109-63. Her intake and output for the past 24 hours has been recorded as 2185 in and 970 out for a positivity of 1215 mL. She has put out 205 mL from the chest tube and there is a small air leak with coughing. She is just starting to take oral today. On physical examination, she has coarse rhonchi and rales on the left side which all do not clear with coughing. There is additionally some expiratory wheezing on the left side. Her percussion notes are full to the diaphragm. Cardiac exam is without murmurs, clicks, gallops, or rubs. I cannot feel her point of maximal impulse (PMI). S1 and S2 are normal. Abdomen is soft and nontender. Bowel sounds are positive. There is no hepatomegaly and no costovertebral angle tenderness. She is passing flatus. Her extremities show no pretibial edema and no calf tenderness. No differential swelling of the upper extremities. Skin is warm, dry, and perfused without cyanosis or mottling, including that of the nail beds and the knees. Neck is supple. There is no jugular venous distention. No subcutaneous emphysema. Trachea is midline. Mouth shows her mucous membranes to be pink and moist. Lips and commissures are without lesions. There is no thrush. Eyes show her pupils to be equal and reactive. Extraocular motor intact. Sclerae are nonicteric. Neurologic shows II-XII intact along with gross motor and gross sensation intact. Gait is not tested. Psychiatric exam shows her to be awake and alert, oriented times three with appropriate mood and affect, and conversational. Her white count today is 17.7 with hemoglobin and hematocrit of 12.5 and 36.3 respectively. Platelet count is 224 and the differential shows 80% neutrophils, 9% lymphocytes, and 10% monocytes. There are no immature forms. No toxic granulations. Her electrolytes are normal with a BUN and creatinine of 8 and 0.73, and a glucose of 128 with a calcium of 7.9. Her blood gas today show pH of 7.40, pCO2 of 34, pO2 115 on 2 liters nasal cannula with a base excess of -3. Her chest x-ray is pending today. IMPRESSION: 1. Adenocarcinoma, clinical stage I, final pathology pending. 2. Status post left upper lobectomy. 3. Hypertension. 4. Coronary artery disease. PLAN AND DISCUSSION: I will await her chest x-ray in a couple minutes. As of now, I will transfer her to the progressive care unit (PCU). We will await pathology, which will probably not be back until tomorrow. I will not diurese her today.
--- NOTE | 2020-03-18 13:44 | REP ---
REASON FOR EXAM: Followup. COMPARISON: Yesterday. Left-sided thoracotomy tube is status quo. There is a small left apical pneumothorax. This represents a change from the prior exam. The cardiomediastinal silhouette is unchanged. The heart is not enlarged. No acute patchy parenchymal opacities or pleural effusions have developed. There is no significant change in the appearance of the osseous structures. Subcutaneous emphysema seen previously on the left has resolved. IMPRESSION: Small left apical pneumothorax. Electronically Signed by Wilbert Harvey DO 03/18/2020 05:25 P
[2020-03-18] MEDS: diphenhydrAMINE 50MG/ML VIAL (J1200) IV PRN ×2 (14:34→23:05)
[2020-03-18] MEDS: PROPRANOLOL 80 MG LA CAP PO SCH (20:19)
[2020-03-18] MEDS: ATORVASTATIN 20 MG TAB PO SCH (20:19)
[2020-03-19] VITALS: BP 110/65
[2020-03-19] MEDS: LEVALBUTEROL 1.25 MG/0.5 ML CONCENTRATE NEB NEB SCH ×4 (00:17→19:36)
[2020-03-19] MEDS: ceFAZolin SOD 1 GM in D5W MINI-BAG PLUS 50 ML IV SCH ×2 (01:15→08:48)
[2020-03-19 04:00] VITALS: BP 103/58
[2020-03-19 05:34] LABS: BASO # 0.1 10^3/uL (0.0-0.2); BASO % 0.4 % (0.0-1.0); EOS # 0.1 10^3/uL (0.0-0.5); EOS % 0.4 % (0.0-3.0); HEMATOCRIT 36.1 % (36.0-47.0); LYMPH # 2.5 10^3/uL (1.5-5.0); LYMPH % 17.6 % (24.0-44.0); MEAN CORPUSCULAR HEMOGLOBIN 33.9 pg (27.0-33.0); MEAN CORPUSCULAR HGB CONC 33.2 g/dl (32.0-36.5); MONO % 14.3 % (0.0-5.0); NEUTROPHILS # 9.3 10^3/uL (1.5-8.5); NEUTROPHILS % 66.4 % (36.0-66.0); PLATELET COUNT, AUTOMATED 199 10^3/uL (150-450); RED BLOOD COUNT 3.54 10^6/uL (4.00-5.40)
[2020-03-19 05:58] LABS: BLOOD UREA NITROGEN 10 MG/DL (7-18); CALCIUM LEVEL 7.6 MG/DL (8.8-10.2); CARBON DIOXIDE LEVEL 26 MEQ/L (21-32); CHLORIDE LEVEL 108 MEQ/L (98-107); GLOMERULAR FILTRATION RATE > 60.0 (>45); GLUCOSE, FASTING 87 MG/DL (70-100); POTASSIUM SERUM 3.9 MEQ/L (3.5-5.1); SODIUM LEVEL 137 MEQ/L (136-145)
[2020-03-19] MEDS: FENTANYL/BUPIVACAINE/NACL BAG 250 ML EPIDURAL SCH (06:00)
[2020-03-19] MEDS: diphenhydrAMINE 50MG/ML VIAL (J1200) IV PRN ×2 (06:10→20:29)
[2020-03-19 07:53] VITALS: BP 113/66
[2020-03-19] MEDS ORDERED: FUROSEMIDE 40MG/4ML VIAL (J1940) IV ONE (08:45)
[2020-03-19] MEDS: ASCORBIC ACID 500 MG TAB PO SCH (08:48)
[2020-03-19] MEDS: HEPARIN SOD (PORCINE) 5000UNITS/ML VIAL (J1644 PER 1000UNITS) SC SCH ×2 (08:48→20:28)
[2020-03-19] MEDS: DOCUSATE SODIUM 100 MG CAP PO SCH ×2 (08:48→20:29)
[2020-03-19] MEDS: MOM 30ML SUSPENSION UDC PO SCH (08:48)
[2020-03-19] MEDS: PANTOPRAZOLE 40MG TAB (PROTONIX) PO SCH (08:48)
[2020-03-19] MEDS: POTASSIUM CHLORIDE 10 MEQ SR TABLET PO SCH (08:49)
--- NOTE | 2020-03-19 11:15 | REP ---
REASON: Followup. COMPARISON: Multiple, the latest yesterday. Two left-sided thoracotomy tubes status quo. No new abnormal opacities. Small left-sided pneumothorax is not apparent on today's exam. There are no changes in the cardiomediastinal silhouette or osseous structures. IMPRESSION: As above. Electronically Signed by Wilbert Harvey DO 03/19/2020 05:19 P
[2020-03-19 12:00] VITALS: BP 108/59
--- NOTE | 2020-03-19 12:45 | IPN ---
DATE OF SERVICE: 03/19/2020 This is now the second postoperative day for Mrs. Yen. Her pain is very fairly well controlled with the epidural. Her vital signs show a maximum temperature (Tmax) of 99.1 with a heart rate that ranges between 92 and 100 in a sinus rhythm, respiratory rate of 18-20 without the use of accessory muscles, who is 97% saturated on room air, and whose blood pressure is ranging between 130/72 to 103/58. Her intake and output over the past 24 hours has been recorded as 2546 in and 2965 out for a negativity of 419 mL. She has put 475 mL out of the chest tube, and there is a one-bubble air leak with forcible coughing. On physical examination, her lungs show rales and coarse rhonchi on the left side. She has chest tube squeaks additionally. Percussion note is full to the diaphragm. Cardiac examination is without murmurs, clicks, gallops, or rubs. I cannot feel her point of maximal impulse (PMI). S1 and S2 are normal. Abdomen is soft and nontender. Bowel sounds are positive. There is no hepatomegaly and no costovertebral angle (CVA) tenderness. She has not yet had a bowel movement, but she does have flatus. Her extremities show no pretibial edema and no calf tenderness. No differential swelling of the upper extremities. Skin is warm, dry, and perfused without cyanosis or mottling, including that of the nail beds and the knees. Neck is supple. There is no jugular venous distention. No subcutaneous emphysema. Trachea is midline. Mouth shows her mucous membranes to be pink and moist. Lips and commissures without lesions. There is no thrush. Eyes show her pupils to be equal and reactive. Extraocular motor intact. Sclerae anicteric. Neurologic shows II-XII intact, along with gross motor and gross sensation intact. Gait is not tested. Psychiatric shows her to be awake and alert, oriented times three with appropriate mood and affect, and conversational. Her white count today is 14.0 with hemoglobin and hematocrit of 12.0 and 36.1, respectively. Platelet count of 199. These are essentially unchanged from yesterday. Differential shows 66% neutrophils, 17% lymphocytes, and 14% monocytes. There are no immature forms. No toxic granulations. Her electrolytes are essentially normal with a BUN and creatinine of 10 and 0.7, and a glucose of 87 with a calcium of 7.6. There are no blood gases on her today. Her chest x-ray today shows her lung fully expanded to the chest wall. There is obligate volume loss from the lobectomy. Costophrenic angles are sharp, and there are no infiltrates. Chest tubes are in good place. I have gone over pathology with the pathologist. It is moderately differentiated adenocarcinoma with a maximum tumor size of 1.7. All nodes are negative. This then makes her a [id number] or stage IA2 disease. The pathology report is incorrect, characterizing it as a T1a. T1b ranges from greater than 1 to 2 or less centimeters in size. IMPRESSION: 1. Stage IA2 adenocarcinoma. 2. Postoperative day #2, status post left upper lobectomy. 3. Hypertension. 4. Coronary artery disease. PLAN AND DISCUSSION: I will take her off suction today. She is written for the progressive care unit (PCU), but there was no room in the PCU yesterday. I will diurese her today. She has put out over 400 mL in chest tube output. I am gratified that she only has a one-bubble if any air leak.
[2020-03-19 16:00] VITALS: BP 108/69
[2020-03-19 20:00] VITALS: BP 124/72
[2020-03-19] MEDS: PROPRANOLOL 80 MG LA CAP PO SCH (20:27)
[2020-03-19] MEDS: ATORVASTATIN 20 MG TAB PO SCH (20:28)
[2020-03-20] VITALS (9 sets, daily range): BP systolic 95–120; BP diastolic 55–75
[2020-03-20] MEDS: FENTANYL/BUPIVACAINE/NACL BAG 250 ML EPIDURAL SCH ×3 (00:18→20:13)
[2020-03-20] MEDS: LEVALBUTEROL 1.25 MG/0.5 ML CONCENTRATE NEB NEB SCH ×4 (01:07→19:40)
[2020-03-20 05:47] LABS: BASO # 0.1 10^3/uL (0.0-0.2); BASO % 0.6 % (0.0-1.0); EOS # 0.3 10^3/uL (0.0-0.5); HEMATOCRIT 36.1 % (36.0-47.0); HEMOGLOBIN 12.4 g/dl (12.0-15.5); LYMPH # 2.4 10^3/uL (1.5-5.0); LYMPH % 18.5 % (24.0-44.0); MEAN CORPUSCULAR HEMOGLOBIN 34.7 pg (27.0-33.0); MEAN CORPUSCULAR HGB CONC 34.3 g/dl (32.0-36.5); MEAN CORPUSCULAR VOLUME 101.1 fl (80.0-96.0); MONO # 2.1 10^3/uL (0.0-0.8); NEUTROPHILS # 8.1 10^3/uL (1.5-8.5); NEUTROPHILS % 62.1 % (36.0-66.0); PLATELET COUNT, AUTOMATED 189 10^3/uL (150-450); RED BLOOD COUNT 3.57 10^6/uL (4.00-5.40); WHITE BLOOD COUNT 13.1 10^3/uL (4.0-10.0)
[2020-03-20 06:17] LABS: BLOOD UREA NITROGEN 13 MG/DL (7-18); CALCIUM LEVEL 7.9 MG/DL (8.8-10.2); CARBON DIOXIDE LEVEL 26 MEQ/L (21-32); CHLORIDE LEVEL 105 MEQ/L (98-107); CREATININE FOR GFR 0.65 MG/DL (0.55-1.30); GLOMERULAR FILTRATION RATE > 60.0 (>45); GLUCOSE, FASTING 74 MG/DL (70-100); SODIUM LEVEL 139 MEQ/L (136-145)
[2020-03-20] MEDS: DOCUSATE SODIUM 100 MG CAP PO SCH ×2 (09:00→20:16)
[2020-03-20] MEDS: MOM 30ML SUSPENSION UDC PO SCH (09:00)
[2020-03-20] MEDS: ASCORBIC ACID 500 MG TAB PO SCH (09:16)
[2020-03-20] MEDS: PANTOPRAZOLE 40MG TAB (PROTONIX) PO SCH (09:16)
[2020-03-20] MEDS: POTASSIUM CHLORIDE 10 MEQ SR TABLET PO SCH (09:16)
[2020-03-20] MEDS: HEPARIN SOD (PORCINE) 5000UNITS/ML VIAL (J1644 PER 1000UNITS) SC SCH ×2 (09:17→20:18)
--- NOTE | 2020-03-20 10:46 | REP ---
REASON: Followup. Comparison is yesterday. Left-sided thoracotomy tube status quo. Cardiomediastinal silhouette status quo. Osseous structures status quo. There appears to be the tiniest of left apical pneumothoraces compared to the prior exam. The significance of this is doubtful. Seen only on the lateral view, there is a new rounded opacity in the posterior costophrenic angle, the etiology of which is uncertain. IMPRESSION: 1. Possible tiny minimal left apical pneumothorax. 2. New rounded opacity seen only on the lateral view in the inferior posterior lung hardwick, etiology uncertain. Consider followup with chest CT if clinically relevant. Electronically Signed by Wilbert Harvey DO 03/20/2020 04:54 P
[2020-03-20] MEDS ORDERED: FUROSEMIDE 40MG/4ML VIAL (J1940) IV ONE (12:45)
--- NOTE | 2020-03-20 19:46 | IPN ---
DATE: 03/20/2020 This is now the third postoperative day for Mrs. Yen. Pain is being fairly well controlled, and she has had a bowel movement. She still has a one bubble air leak with forceful coughing. Her vital signs show a maximum temperature (T max) of 99.3 with a heart rate that ranges between 85 and 79 and is sinus rhythm, a respiratory rate of 18 to 20 without the use of accessory muscles who is now 97% saturated on room air and whose blood pressure is ranging between 108/59 to 118/70. Her intake and output the past 24 hours has been recorded as 2120 in and 3010 out for a negativity of 890 mL. She has put out 225 mL from the chest tube, but there is a lot of leakage around the chest tube site onto the bandage. Her weight is pending today. She has put out 2785 mL of urine and taken 2120 mL in oral intake. On physical examination, her lungs show equal breath sounds on either side. I no longer hear the wheezes, rhonchi, rales or the chest tube squeaks. Percussion note is full to the diaphragm. Cardiac exam is without murmurs, clicks, gallops or rubs. I cannot feel her point of maximum impulse (PMI). S1, S2 are normal. Abdomen is soft and nontender. Bowel sounds are positive. There is no hepatomegaly. No costovertebral angle tenderness. Extremities show no pretibial edema. No calf tenderness. No differential swelling of the upper extremities. Skin is warm, dry and perfused without cyanosis or mottling, including that of the nail beds and the knees. Neck is supple. There is no jugular venous distention, no subcutaneous emphysema. Trachea is midline. Mouth shows her mucous membranes to be pink and moist. Lips and commissures without lesions. There is no thrush. Eyes show her pupils to be equal and reactive. Extraocular motions are intact. Sclerae anicteric. Neurologic shows II-XII intact along with gross motor and gross sensation intact. Gait is not tested. Psychiatric shows her to be awake and alert, oriented times three with appropriate mood and affect and conversational. Her white count today is down to 13.1 with a hemoglobin and hematocrit of 12.4 and 36.1, unchanged from yesterday. Platelet count is 189 and stable and differential shows 62% neutrophils, 18% lymphocytes, 16% monocytes. There are no immature forms. No toxic granulations. Her electrolytes are normal with a BUN and creatinine of 13 and 0.65. Potassium is 4.0 with a glucose of 74 and a calcium of 7.9. Her chest x-ray shows her lung fully expanded to the chest wall. There are no infiltrates and costophrenic angles are sharp. Chest tubes are in good place. IMPRESSION: 1. Postoperative day #3, status post left upper lobectomy. 2. Stage IA2 adenocarcinoma. 3. Hypertension. 4. Coronary artery disease. PLAN AND DISCUSSION: I will continue her off suction today but keep her chest tubes in. I will diurese her again today as I think there is a lot more coming from her chest tubes than has actually been measured because of the leakage onto the dressing.
[2020-03-20] MEDS: ATORVASTATIN 20 MG TAB PO SCH (20:17)
[2020-03-20] MEDS: PROPRANOLOL 80 MG LA CAP PO SCH (20:18)
[2020-03-21] VITALS: BP 99/55
[2020-03-21] MEDS: LEVALBUTEROL 1.25 MG/0.5 ML CONCENTRATE NEB NEB SCH ×4 (01:52→20:15)
[2020-03-21 04:00] VITALS: BP 121/64
[2020-03-21 04:40] LABS: BASO # 0.1 10^3/uL (0.0-0.2); BASO % 0.5 % (0.0-1.0); EOS # 0.6 10^3/uL (0.0-0.5); EOS % 5.2 % (0.0-3.0); HEMATOCRIT 35.5 % (36.0-47.0); HEMOGLOBIN 12.1 g/dl (12.0-15.5); LYMPH # 2.3 10^3/uL (1.5-5.0); LYMPH % 19.5 % (24.0-44.0); MEAN CORPUSCULAR HEMOGLOBIN 34.1 pg (27.0-33.0); MEAN CORPUSCULAR HGB CONC 34.1 g/dl (32.0-36.5); MONO # 1.8 10^3/uL (0.0-0.8); MONO % 15.4 % (0.0-5.0); NEUTROPHILS # 6.8 10^3/uL (1.5-8.5); NEUTROPHILS % 57.8 % (36.0-66.0); PLATELET COUNT, AUTOMATED 225 10^3/uL (150-450); RED BLOOD COUNT 3.55 10^6/uL (4.00-5.40); WHITE BLOOD COUNT 11.8 10^3/uL (4.0-10.0)
[2020-03-21 04:59] LABS: BLOOD UREA NITROGEN 12 MG/DL (7-18); CALCIUM LEVEL 7.5 MG/DL (8.8-10.2); CARBON DIOXIDE LEVEL 31 MEQ/L (21-32); CHLORIDE LEVEL 104 MEQ/L (98-107); CREATININE FOR GFR 0.64 MG/DL (0.55-1.30); GLOMERULAR FILTRATION RATE > 60.0 (>45); GLUCOSE, FASTING 94 MG/DL (70-100); POTASSIUM SERUM 3.8 MEQ/L (3.5-5.1); SODIUM LEVEL 141 MEQ/L (136-145)
[2020-03-21 08:00] VITALS: BP 131/77
[2020-03-21] MEDS: ASCORBIC ACID 500 MG TAB PO SCH (08:19)
[2020-03-21] MEDS: MOM 30ML SUSPENSION UDC PO SCH (08:19)
[2020-03-21] MEDS: PANTOPRAZOLE 40MG TAB (PROTONIX) PO SCH (08:19)
[2020-03-21] MEDS: DOCUSATE SODIUM 100 MG CAP PO SCH ×2 (08:19→19:48)
[2020-03-21] MEDS: POTASSIUM CHLORIDE 10 MEQ SR TABLET PO SCH (08:19)
[2020-03-21] MEDS: HEPARIN SOD (PORCINE) 5000UNITS/ML VIAL (J1644 PER 1000UNITS) SC SCH ×2 (08:20→19:44)
[2020-03-21] MEDS: ONDANSETRON 4MG/2ML VIAL IV PRN (08:25)
--- NOTE | 2020-03-21 08:53 | REP ---
REASON: Followup. COMPARISON: Yesterday. The two left-sided thoracotomy tubes are unchanged. The cardiomediastinal silhouette is unchanged. Frontal view shows no change in the lung hardwick. The lateral view shows decrease in the size of the rounded density seen previously on the posterior inferior lung hardwick. There is persistent mild posterior costophrenic angle blunting. This is no change in the osseous structures. IMPRESSION: There has been some improvement as described above. Electronically Signed by Wilbert Harvey DO 03/21/2020 09:19 A
[2020-03-21 12:00] VITALS: BP 97/52
[2020-03-21 16:00] VITALS: BP 129/81
[2020-03-21] MEDS: ATORVASTATIN 20 MG TAB PO SCH (19:48)
[2020-03-21] MEDS: PROPRANOLOL 80 MG LA CAP PO SCH (19:48)
[2020-03-21 19:49] VITALS: BP 112/61
[2020-03-22] VITALS (7 sets, daily range): BP systolic 94–158; BP diastolic 52–85
[2020-03-22] MEDS: LEVALBUTEROL 1.25 MG/0.5 ML CONCENTRATE NEB NEB SCH ×4 (01:52→20:28)
[2020-03-22] MEDS: FENTANYL/BUPIVACAINE/NACL BAG 250 ML EPIDURAL SCH (03:44)
[2020-03-22 05:56] LABS: BASO # 0.1 10^3/uL (0.0-0.2); BASO % 0.7 % (0.0-1.0); EOS # 0.6 10^3/uL (0.0-0.5); EOS % 6.3 % (0.0-3.0); HEMATOCRIT 37.2 % (36.0-47.0); HEMOGLOBIN 12.4 g/dl (12.0-15.5); LYMPH # 1.7 10^3/uL (1.5-5.0); LYMPH % 17.8 % (24.0-44.0); MEAN CORPUSCULAR HEMOGLOBIN 34.1 pg (27.0-33.0); MEAN CORPUSCULAR HGB CONC 33.3 g/dl (32.0-36.5); MEAN CORPUSCULAR VOLUME 102.2 fl (80.0-96.0); MONO # 1.6 10^3/uL (0.0-0.8); MONO % 16.2 % (0.0-5.0); NEUTROPHILS # 5.6 10^3/uL (1.5-8.5); NEUTROPHILS % 56.8 % (36.0-66.0); PLATELET COUNT, AUTOMATED 247 10^3/uL (150-450); RED BLOOD COUNT 3.64 10^6/uL (4.00-5.40); WHITE BLOOD COUNT 9.8 10^3/uL (4.0-10.0)
[2020-03-22 06:22] LABS: BLOOD UREA NITROGEN 9 MG/DL (7-18); CARBON DIOXIDE LEVEL 30 MEQ/L (21-32); CHLORIDE LEVEL 103 MEQ/L (98-107); CREATININE FOR GFR 0.65 MG/DL (0.55-1.30); GLOMERULAR FILTRATION RATE > 60.0 (>45); GLUCOSE, FASTING 93 MG/DL (70-100); POTASSIUM SERUM 4.4 MEQ/L (3.5-5.1); SODIUM LEVEL 137 MEQ/L (136-145)
--- NOTE | 2020-03-22 07:17 | IPN ---
DATE: 03/21/2020 This is now the fourth postoperative day for Mrs. Yen. Her pain is being well controlled with the epidural. We are now down to 8 mL/h. She still has a one bubble air leak with forceful cough. Her vital signs show a maximum temperature (Tmax) of 99.6 with a heart rate that ranges between 78 and 69 in a sinus rhythm, respiratory rate of 16-18 without the use of accessory muscles who is now 98-94% saturated on room air and whose blood pressure is ranging between 114/55-131/77. Her intake and output for the past 24 hours has been recorded as 2563 in and 4726 out for a negativity of 2100 mL. She has put out 121 mL out the chest tube and there is still that one bubble air leak. Her weight today is 78 kg compared to 80.1 kg 2 days ago. On physical examination, her left side still shows some squeaks associated with chest tube. I hear no wheezes, rhonchi or rales. Percussion note is full to the diaphragm. Cardiac exam is without murmurs, clicks, gallops or rubs. I cannot feel her point of maximum impulse (PMI). S1 and S2 are normal. Abdomen is soft, nontender. Bowel sounds are positive. There is no hepatomegaly. No costovertebral angle (CVA) tenderness. Extremities show no pretibial edema. No calf tenderness. No differential swelling of the upper extremities. Skin is warm, dry and perfused without cyanosis or mottling, including that of the nail beds and the knees. Neck is supple. There is no jugular venous distention, no subcutaneous emphysema. Trachea is midline. Mouth shows her mucous membranes to be pink and moist. Lips and commissures without lesions. There is no thrush. Eyes show her pupils to be equal and reactive. Extraocular motions are intact. Sclerae anicteric. Neurologic shows II-XII intact along with gross motor and gross sensation intact. Gait is not tested. Psychiatric shows her to be awake and alert, oriented times three with appropriate mood and affect and conversational. Her white count today is 11.8, which continues to decrease, with a hemoglobin and hematocrit of 12.1 and 35.5, essentially unchanged from yesterday, with a platelet count of 225 and stable. Differential shows 57% neutrophils, 19% lymphocytes, 15% monocytes. There are no immature forms. No toxic granulations. Her chemistries show normal electrolytes with a BUN and creatinine of 12 and 0.64, glucose of 94 and a calcium of 7.5. Her chest x-ray shows her lung fully expanded to the chest wall. Costophrenic angles are sharp and there are no infiltrates. IMPRESSION: 1. Postoperative day #4, status post left upper lobectomy. 2. Stage IA2 adenocarcinoma. 3. Hypertension. 4. Coronary artery disease. PLAN AND DISCUSSION: I will clamp her chest tubes today and take a chest x-ray in the morning. Should she become short of breath and develop subcutaneous emphysema, we will of course unclamp the chest tube. I will not diurese her today.
[2020-03-22] MEDS: ASCORBIC ACID 500 MG TAB PO SCH (09:00)
[2020-03-22] MEDS: DOCUSATE SODIUM 100 MG CAP PO SCH ×2 (09:01→20:53)
[2020-03-22] MEDS: POTASSIUM CHLORIDE 10 MEQ SR TABLET PO SCH (09:01)
[2020-03-22] MEDS: PANTOPRAZOLE 40MG TAB (PROTONIX) PO SCH (09:01)
[2020-03-22] MEDS: HEPARIN SOD (PORCINE) 5000UNITS/ML VIAL (J1644 PER 1000UNITS) SC SCH ×2 (09:01→20:55)
[2020-03-22] MEDS: MOM 30ML SUSPENSION UDC PO SCH (09:01)
[2020-03-22] MEDS: ATORVASTATIN 20 MG TAB PO SCH (20:54)
[2020-03-22] MEDS: PROPRANOLOL 80 MG LA CAP PO SCH (20:55)
[2020-03-23] VITALS: BP 135/74
[2020-03-23] MEDS: LEVALBUTEROL 1.25 MG/0.5 ML CONCENTRATE NEB NEB SCH ×2 (02:32→07:31)
[2020-03-23 04:00] VITALS: BP 141/75
[2020-03-23 05:50] LABS: BASO # 0.1 10^3/uL (0.0-0.2); BASO % 0.8 % (0.0-1.0); EOS # 0.6 10^3/uL (0.0-0.5); EOS % 5.8 % (0.0-3.0); HEMATOCRIT 37.9 % (36.0-47.0); HEMOGLOBIN 12.7 g/dl (12.0-15.5); LYMPH # 1.3 10^3/uL (1.5-5.0); LYMPH % 13.8 % (24.0-44.0); MEAN CORPUSCULAR HGB CONC 33.5 g/dl (32.0-36.5); MEAN CORPUSCULAR VOLUME 101.6 fl (80.0-96.0); MONO # 1.5 10^3/uL (0.0-0.8); NEUTROPHILS # 5.9 10^3/uL (1.5-8.5); NEUTROPHILS % 61.1 % (36.0-66.0); PLATELET COUNT, AUTOMATED 246 10^3/uL (150-450); RED BLOOD COUNT 3.73 10^6/uL (4.00-5.40); WHITE BLOOD COUNT 9.6 10^3/uL (4.0-10.0)
[2020-03-23 06:07] LABS: BLOOD UREA NITROGEN 9 MG/DL (7-18); CALCIUM LEVEL 8.1 MG/DL (8.8-10.2); CARBON DIOXIDE LEVEL 29 MEQ/L (21-32); CHLORIDE LEVEL 105 MEQ/L (98-107); CREATININE FOR GFR 0.59 MG/DL (0.55-1.30); GLOMERULAR FILTRATION RATE > 60.0 (>45); GLUCOSE, FASTING 103 MG/DL (70-100); POTASSIUM SERUM 4.3 MEQ/L (3.5-5.1); SODIUM LEVEL 141 MEQ/L (136-145)
--- NOTE | 2020-03-23 07:54 | REP ---
CHEST PA AND LATERAL: 03/22/2020. CLINICAL HISTORY: Status post left upper lobectomy. COMPARISON: 03/21/2020, 03/20/2020. FINDINGS: The two left-sided chest tubes in the upper lung zone and epidural catheter project over the spine and right chest, unchanged. There is a small loculated anterior hydropneumothorax with an air-fluid level seen anteriorly on this study. A small pleural effusion suggested on the lateral view. I do not see any other significant interval change. Electronically Signed by Yosef Aleman MD 03/23/2020 08:44 A
[2020-03-23 08:00] VITALS: BP 127/81
[2020-03-23] MEDS: MOM 30ML SUSPENSION UDC PO SCH (08:45)
[2020-03-23] MEDS: DOCUSATE SODIUM 100 MG CAP PO SCH (08:45)
[2020-03-23] MEDS: HEPARIN SOD (PORCINE) 5000UNITS/ML VIAL (J1644 PER 1000UNITS) SC SCH (08:50)
[2020-03-23] MEDS: PANTOPRAZOLE 40MG TAB (PROTONIX) PO SCH (08:50)
[2020-03-23] MEDS: POTASSIUM CHLORIDE 10 MEQ SR TABLET PO SCH (08:50)
[2020-03-23] MEDS: ASCORBIC ACID 500 MG TAB PO SCH (08:50)
[2020-03-23] MEDS ORDERED: HYDR-3715 PO (10:11)
--- NOTE | 2020-03-23 11:48 | DSES ---
DATE OF ADMISSION: 03/17/2020 DATE OF DISCHARGE: 03/23/2020 DISCHARGE DIAGNOSES: 1. Stage IA2 adenocarcinoma left upper lobe. 2. Postoperative day #5 status post left upper lobectomy. 3. Hypertension. 4. Coronary artery disease. HOSPITAL COURSE: The patient is a 64-year-old white female who underwent low-dose CT scanning in July 2019, which showed a left upper lobe spiculated lesion, which led to a CT scan and PET scan and eventually a biopsy, which showed the adenocarcinoma. She was virtually asymptomatic without fevers, chills, sweats or cough, sputum production or chest pain. Her significant medical history was hypertension and hypercholesterolemia with a CAT scan showing coronary artery disease. She underwent a cardiology clearance. Preoperative pulmonary function tests (PFTs) showed an FEV1 of 2.16, which was 92% of predicted and diffusion capacity of 18.45, which is 89% or predicted. She was taken to the operating room where she underwent a left upper lobectomy and complete mediastinal node lymphadenectomy. Pathology was returned with a 1.7 cm moderately differentiated adenocarcinoma with all nodes negative. She was therefore assigned [id number] or stage IA2 disease. As such, she will not need adjuvant chemotherapy. She had a benign postoperative course with her chest tubes being removed on the fourth postoperative day. Her chest x-ray showed her lung fully expanded to the chest wall on discharge with no subcutaneous emphysema. She is being discharged today on her home medications, which include vitamin C 500 mg every day, atorvastatin 40 mg every day, fexofenadine 180 mg at bedtime, multivitamins one every day, potassium gluconate one every day, propranolol 80 mg every day, and triamterine hydrochlorothiazide 37.5-25 every day. She will return to see me in 1 week with a chest x-ray in postoperative followup. Her discharge hemoglobin and hematocrit are 12.7 and 37.9 with platelet count 245. Discharge chemistries show normal electrolytes with BUN and creatinine of 9 and 0.59.
--- NOTE | 2020-03-23 13:33 | REP ---
CHEST PA AND LATERAL: 03/23/2020. COMPARISON: 03/22/2020, 03/21/2020. CLINICAL HISTORY: Status post left upper lobectomy, chest tube removal. FINDINGS: Two left upper lung zone chest tubes are removed. The epidural catheter is also removed. There is apical pleural thickening or soft tissue density/fluid at the apex, unchanged. Some volume loss in the left hemithorax is again seen. There is a small loculated anterior hydropneumothorax with an air-fluid level, which is the same or slightly smaller air cavity than on yesterday's lateral chest. Subpulmonic component. Right lung shows some minor basilar atelectatic change. Exam is otherwise unchanged. IMPRESSION: 1. Interval removal of two left upper lung zone chest tubes with stable to slightly smaller anterior loculated hydropneumothorax and no apical pneumothorax. 2. Chronic postoperative changes with volume loss in the left hemithorax and some minor subsegmental atelectatic change in the medial right base. Otherwise stable. Electronically Signed by Yosef Aleman MD 03/23/2020 06:57 P
== END 2020-03-23 11:19 | disposition home or self-care (01) | DRG 165 ==
LOC: M OR 07:07 → EDSTATUS 08:30 → M ICU 14:51 → M PCU 03-21 15:53
PROVIDERS: ADMIT Thoracic Surgery (Cardiothoracic Vascular Surgery); ATTEND Thoracic Surgery (Cardiothoracic Vascular Surgery)
PROC: 07B70ZX Excision of Thorax Lymphatic, Open Approach, Diagnostic (ICD-10-PCS; 2020-03-17)
PROC: 0BTG0ZZ Resection of Left Upper Lung Lobe, Open Approach (ICD-10-PCS; principal; 2020-03-17 08:30)
DX: C34.12 Malignant neoplasm of upper lobe, left bronchus or lung (principal); Z11.59 Encounter for screening for other viral diseases; I10 Essential (primary) hypertension; I25.10 Atherosclerotic heart disease of native coronary artery without angina pectoris; E78.00 Pure hypercholesterolemia, unspecified

== ENCOUNTER → 2020-03-31 | Outpatient (CLI) | payer MEDICARE, BC, OTHER ==
[~2020-03-31] MED LIST changes: +HYDR-3715 PO; -LR 1,000 ML IV ONE; -MUPIROCIN 2% OINT 22 GM TUBE TOP ONE; -ceFAZolin SOD 2 GM in IV 1 EA IV ONE
--- NOTE | 2020-03-31 10:49 | REPPI ---
Clinical: History of malignancy . Comparison: 03/23/2020 . Technique: PA and lateral. Findings: Postsurgical changes involving left hemithorax. Small left apical hydropneumothorax suspected. The cardiac silhouette is normal. The right hemithorax appears clear. Skeletal structures are intact. Impression: 1. Postsurgical changes involving the left hemithorax with suspected small left apical hydropneumothorax. Electronically Signed by Jack Arthur MD 03/31/2020 10:41 A
== END ==
LOC: M PLAIMG 09:46
PROVIDERS: ATTEND Thoracic Surgery (Cardiothoracic Vascular Surgery)
DX: C34.12 Malignant neoplasm of upper lobe, left bronchus or lung (principal)

== ENCOUNTER → 2020-04-23 | Outpatient (CLI) | payer MEDICARE, BC, OTHER ==
--- NOTE | 2020-06-05 09:01 | REP ---
TWO-VIEW CHEST COMPARISON: 03/31/2020 HISTORY: Left upper lobe neoplasm. TECHNIQUE: Two views of the chest was performed. FINDINGS: Postsurgical changes in the left upper lobe appear relatively stable. There is no definite pneumothorax identified. Surgical clips are seen in the left upper lobe medially. There is mild pleural thickening. There is mild left basilar fibroatelectatic change. Right lung remains clear. Heart and mediastinum are unchanged. There are mild degenerative changes of the spine. IMPRESSION: Postsurgical changes left lung with no definite pneumothorax. MTDD
== END ==
LOC: M RAD 10:15
PROVIDERS: ATTEND Thoracic Surgery (Cardiothoracic Vascular Surgery)
DX: C34.12 Malignant neoplasm of upper lobe, left bronchus or lung (principal)

== ENCOUNTER → 2020-10-06 | Outpatient (CLI) | payer MEDICARE, BC, OTHER ==
--- NOTE | 2020-10-07 10:11 | REP ---
INDICATION: OTHER NONSPECIFIC ABNORMAL FINDING OF LUNG FIELD COMPARISON: 03/13/2020 TECHNIQUE: Axial noncontrast images from the thoracic inlet to the upper abdomen with coronal and sagittal reformations. This CT examination was performed using the following dose reduction techniques: Automated exposure control, adjustment of mA and/or kv according to the patient's size, and use of iterative reconstruction technique. FINDINGS: Patient is status post left upper lobe lobectomy. The bilateral lung hardwick are relatively well aerated and clear. Few scattered small right upper lobe bullae are appreciated along with adjacent areas of interstitial prominence and scarring. Small linear fibro atelectatic changes at the lingula and right lower lobe are suggested less likely representing acute process. No significant consolidation, obvious nodule or mass lesion. No effusion. No pneumothorax. Tracheobronchial tree is patent. No obvious adenopathy. Mediastinum demonstrates stable atherosclerotic changes to the thoracic aorta and coronary arteries with small amount of pericardial fluid. Musculoskeletal structures without acute osseous abnormality. Limited upper abdomen again demonstrates 1.3 cm left adrenal adenoma. IMPRESSION: 1. Status post left upper lobe lobectomy. No evidence for recurrence or metastatic disease. 2. Minimal presumed scarring at the right base and lingula along with few scattered chronic right upper lobe bullae similar to prior examination. 3. Stable 1.3 cm left adrenal adenoma. <Electronically signed by Jack Arthur > 10/07/20 [id number]
== END ==
LOC: M RAD 10:54
PROVIDERS: ATTEND Internal Medicine Pulmonary Disease
DX: R91.8 Other nonspecific abnormal finding of lung field (principal); Z90.2 Acquired absence of lung [part of]; D35.02 Benign neoplasm of left adrenal gland

== ENCOUNTER → 2021-04-21 | Outpatient (CLI) | payer MEDICARE, BC, OTHER ==
[~2021-04-21] MED LIST changes: -DOCU-129 PO; +DOCU-153 PO; +ERGO500029 PO; -HM P99TA PO; +POTA99TA14 PO; -VITA50005 PO
--- NOTE | 2021-04-21 11:15 | REP ---
INDICATION: ADN FINDINGS OF LUNG FIELD. COMPARISON: 10/06/2020 without IV contrast. TECHNIQUE: Chest CT without IV contrast. FINDINGS: There is a left upper lobectomy. This is similar to the comparison study. There are no lung masses or nodules. There are no acute infiltrates or pleural effusions. There is a small zone chronic subpleural parenchymal scarring in the right lower lobe, unchanged and in the anterior segment of the left lower lobe, unchanged. There are scattered bulla in the right upper lobe, also unchanged. There are a few normal size precarinal and paratracheal mediastinal lymph nodes, unchanged. In the absence of IV contrast the study is insensitive for hilar adenopathy. There is no axillary adenopathy. The unenhanced thoracic aorta is unremarkable except for occasional calcified atheroma. Cardiac size is normal. There is calcified atheroma in the coronary arteries, particularly the left anterior descending coronary artery. There is no pericardial effusion. Upper abdomen: There is a 13 mm right adrenal nodule of a predominantly fat density compatible with adrenal adenoma, unchanged. There are punctate nonobstructive calcifications in the right renal upper pole, unchanged. There are large areas of decreased attenuation throughout the hepatic parenchyma compatible with geographic hepato steatosis, unchanged. The gallbladder, pancreas and spleen are unremarkable. The right adrenal is unremarkable. IMPRESSION: There is no significant interval change from the comparison study. <Electronically signed by Blake Goff > 04/21/21 [id number]
== END ==
LOC: M RAD 10:42
PROVIDERS: ATTEND Internal Medicine Pulmonary Disease
DX: R91.8 Other nonspecific abnormal finding of lung field (principal)

== ENCOUNTER → 2021-06-10 | Outpatient (REF) | payer MEDICARE, OTHER ==
[2021-06-10 18:58] LABS: APPEARANCE, URINE HAZY (CLEAR); BACTERIA, URINE AUTO 2+ (NEGATIVE); BILIRUBIN, URINE AUTO NEGATIVE (NEGATIVE); BLOOD, URINE BLOOD NEGATIVE (NEGATIVE); COLOR, URINE STRAW (YELLOW); GLUCOSE, URINE (UA) AUTO NEGATIVE (NEGATIVE); KETONE, URINE AUTO NEGATIVE (NEGATIVE); LEUKOCYTE ESTERASE, URINE AUTO 2+ (NEGATIVE); MUCUS, URINE SMALL (NEGATIVE); NITRITE, URINE AUTO NEGATIVE (NEGATIVE); PROTEIN, URINE AUTO NEGATIVE (NEGATIVE); RBC, URINE AUTO 1 /HPF (0-3); SPECIFIC GRAVITY URINE AUTO 1.002 (1.002-1.035); SQUAMOUS EPITHELIAL CELL UR AU 3 /HPF (0-6); UROBILINOGEN, URINE AUTO 0.2 mg/dL (0.0-2.0); WBC, URINE AUTO 23 /HPF (0-3)
== END ==
LOC: M LAB REF 17:22
PROVIDERS: ATTEND Obstetrics & Gynecology
DX: N30.00 Acute cystitis without hematuria (principal)

== ENCOUNTER → 2021-07-06 | Outpatient (REF) | payer MEDICARE, OTHER ==
[2021-07-06 12:39] LABS: BASO # 0.2 10^3/uL (0.0-0.2); BASO % 2.2 % (0.0-1.0); EOS # 0.4 10^3/uL (0.0-0.5); HEMATOCRIT 45.8 % (36.0-47.0); HEMOGLOBIN 15.6 g/dl (12.0-15.5); LYMPH # 2.2 10^3/uL (1.5-5.0); LYMPH % 31.2 % (24.0-44.0); MEAN CORPUSCULAR HEMOGLOBIN 33.8 pg (27.0-33.0); MEAN CORPUSCULAR HGB CONC 34.1 g/dl (32.0-36.5); MEAN CORPUSCULAR VOLUME 99.1 fl (80.0-96.0); MONO # 0.8 10^3/uL (0.0-0.8); MONO % 11.4 % (2.0-8.0); NEUTROPHILS # 3.3 10^3/uL (1.5-8.5); NEUTROPHILS % 47.5 % (36.0-66.0); PLATELET COUNT, AUTOMATED 299 10^3/uL (150-450); RED BLOOD COUNT 4.62 10^6/uL (4.00-5.40)
[2021-07-06 13:19] LABS: ALBUMIN 3.5 GM/DL (3.2-5.2); ALT/SGPT 38 U/L (12-78); BILIRUBIN,TOTAL 0.5 MG/DL (0.2-1.0); BLOOD UREA NITROGEN 16 MG/DL (7-18); CALCIUM LEVEL 9.9 MG/DL (8.8-10.2); CARBON DIOXIDE LEVEL 34 MEQ/L (21-32); CHLORIDE LEVEL 106 MEQ/L (98-107); CHOLESTEROL LEVEL 139 MG/DL (<200); CHOLESTEROL RISK RATIO 2.836 (<5); CREATININE FOR GFR 0.83 MG/DL (0.55-1.30); GLOMERULAR FILTRATION RATE > 60.0 (>45); GLUCOSE, FASTING 98 MG/DL (70-100); HDL CHOLESTEROL 49 MG/DL (>40); LDL CHOLESTEROL 65 MG/DL (<100); NON-HDL-C 90 MG/DL; POTASSIUM SERUM 4.1 MEQ/L (3.5-5.1); SODIUM LEVEL 143 MEQ/L (136-145); TRIGLYCERIDES LEVEL 125 MG/DL (<150)
== END ==
LOC: M SFHCADAM 10:43
PROVIDERS: ATTEND Family Medicine
DX: I10 Essential (primary) hypertension (principal); I25.84 Coronary atherosclerosis due to calcified coronary lesion; D75.89 Other specified diseases of blood and blood-forming organs; N95.1 Menopausal and female climacteric states

== ENCOUNTER → 2021-08-10 | Outpatient (CLI) | payer MEDICARE, OTHER | LOC: M WHC 10:45 | PROVIDERS: ATTEND Obstetrics & Gynecology | DX: Z12.31 Encounter for screening mammogram for malignant neoplasm of breast (principal) ==

== ENCOUNTER → 2021-10-29 | Outpatient (CLI) | payer MEDICARE, BC, OTHER | LOC: M RAD 17:39 | PROVIDERS: ATTEND Internal Medicine Pulmonary Disease | DX: R91.8 Other nonspecific abnormal finding of lung field (principal); J43.9 Emphysema, unspecified ==

== ENCOUNTER → 2022-04-26 | Outpatient (CLI) | payer MEDICARE, BC, OTHER | LOC: M PLAIMG 09:57 | PROVIDERS: ATTEND Internal Medicine Pulmonary Disease | DX: R91.8 Other nonspecific abnormal finding of lung field (principal); Z85.118 Personal history of other malignant neoplasm of bronchus and lung ==

== ENCOUNTER → 2022-09-28 | Outpatient (CLI) | payer MEDICARE, BC, OTHER | LOC: M WHC 10:52 | PROVIDERS: ATTEND Advanced Practice Midwife | DX: Z12.31 Encounter for screening mammogram for malignant neoplasm of breast (principal) ==

== ENCOUNTER → 2022-10-29 | Outpatient (CLI) | payer MEDICARE, BC, OTHER | LOC: M RAD 12:32 | PROVIDERS: ATTEND Internal Medicine Pulmonary Disease | DX: Z85.118 Personal history of other malignant neoplasm of bronchus and lung (principal) ==

== ENCOUNTER → 2022-12-29 | Outpatient (REF) | payer MEDICARE, OTHER ==
[2022-12-29 13:30] LABS: BASO # 0.1 10^3/uL (0.0-0.2); BASO % 1.4 % (0.0-1.0); EOS # 0.4 10^3/uL (0.0-0.5); HEMATOCRIT 45.6 % (36.0-47.0); HEMOGLOBIN 15.3 g/dl (12.0-15.5); LYMPH # 2.5 10^3/uL (1.5-5.0); LYMPH % 32.2 % (24.0-44.0); MEAN CORPUSCULAR HEMOGLOBIN 33.9 pg (27.0-33.0); MEAN CORPUSCULAR HGB CONC 33.6 g/dl (32.0-36.5); MEAN CORPUSCULAR VOLUME 101.1 fl (80.0-96.0); MONO % 13.4 % (2.0-8.0); NEUTROPHILS # 3.6 10^3/uL (1.5-8.5); NEUTROPHILS % 47.5 % (36.0-66.0); PLATELET COUNT, AUTOMATED 243 10^3/uL (150-450); RED BLOOD COUNT 4.51 10^6/uL (4.00-5.40); WHITE BLOOD COUNT 7.6 10^3/uL (4.0-10.0)
[2022-12-29 14:08] LABS: ALBUMIN 3.6 G/DL (3.2-5.2); ALKALINE PHOSPHATASE 64 U/L (46-116); ALT/SGPT 30 U/L (7.0-40); AST/SGOT 23 U/L (<34); BILIRUBIN,TOTAL 0.9 MG/DL (0.3-1.2); BLOOD UREA NITROGEN 17 MG/DL (9-23); CALCIUM LEVEL 9.1 MG/DL (8.3-10.6); CARBON DIOXIDE LEVEL 32 MMOL/L (20-31); CHLORIDE LEVEL 106 MMOL/L (98-107); CHOLESTEROL LEVEL 137 MG/DL (<200); CHOLESTEROL RISK RATIO 2.82 (<5); CREATININE FOR GFR 0.89 MG/DL (0.55-1.30); GLOMERULAR FILTRATION RATE > 60.0 (>45); GLUCOSE, FASTING 96 MG/DL (74-106); HDL CHOLESTEROL 48.5 MG/DL (>40); LDL CHOLESTEROL 57.1 MG/DL (<100); NON-HDL-C 88.5 MG/DL; POTASSIUM SERUM 4.3 MMOL/L (3.5-5.1); SODIUM LEVEL 141 MMOL/L (136-145); TOTAL PROTEIN 6.5 G/DL (5.7-8.2); TRIGLYCERIDES LEVEL 157 MG/DL (<150)
[2022-12-29 14:09] LABS: THYROID STIMULATING HORMONE 2.251 uIU/ML (0.55-4.78)
== END ==
LOC: M SFHCADAM 07:38
PROVIDERS: ATTEND Family Medicine
DX: Z00.00 Encounter for general adult medical examination without abnormal findings (principal)

== ENCOUNTER → 2023-04-19 | Outpatient (REF) | payer MEDICARE, OTHER ==
[2023-04-19 13:42] LABS: TOTAL 25(OH) VITAMIN D 80.4 NG/ML (20.0-100.0)
== END ==
LOC: M SFHCADAM 12:28
PROVIDERS: ATTEND Family Medicine
DX: Z01.84 Encounter for antibody response examination (principal); Z86.39 Personal history of other endocrine, nutritional and metabolic disease; Z79.899 Other long term (current) drug therapy

== ENCOUNTER → 2023-05-18 | Outpatient (REF) | payer MEDICARE, OTHER | LOC: M LAB REF 16:34 | PROVIDERS: ATTEND Nurse Practitioner Family | DX: R30.0 Dysuria (principal); N39.0 Urinary tract infection, site not specified ==

== ENCOUNTER → 2023-08-15 | Outpatient (CLI) | payer MEDICARE, OTHER ==
[~2023-08-15] MED LIST changes: -ALLE1TAB23 PO; +FEXO-157 PO
== END ==
LOC: M WHC 10:40
PROVIDERS: ATTEND Family Medicine
DX: Z12.31 Encounter for screening mammogram for malignant neoplasm of breast (principal)

== ENCOUNTER → 2023-10-04 | Outpatient (CLI) | payer MEDICARE, BC, OTHER | LOC: M WHC 10:56 | PROVIDERS: ATTEND Advanced Practice Midwife | DX: Z12.31 Encounter for screening mammogram for malignant neoplasm of breast (principal) ==

== ENCOUNTER → 2023-11-14 | Outpatient (CLI) | payer MEDICARE, BC ==
[~2023-11-14] MED LIST changes: -DOCU-153 PO; +STOO100C30 PO
== END ==
LOC: M RAD 15:08
PROVIDERS: ATTEND Internal Medicine Pulmonary Disease
DX: Z85.118 Personal history of other malignant neoplasm of bronchus and lung (principal)

== ENCOUNTER → 2023-11-29 | Outpatient (CLI) | payer MEDICARE, BC | LOC: M WHC 09:16 | PROVIDERS: ATTEND Family Medicine | DX: R93.89 Abnormal findings on diagnostic imaging of other specified body structures (principal) ==

== ENCOUNTER → 2024-01-27 | Outpatient (REF) | payer MEDICARE, BC ==
[~2024-01-27] MED LIST changes: -GARL500C2 PO; +GARL500C6 PO
[2024-01-27 13:37] LABS: BASO # 0.1 10^3/uL (0.0-0.2); BASO % 1.1 % (0.0-1.0); EOS # 0.3 10^3/uL (0.0-0.5); EOS % 4.3 % (0.0-3.0); HEMATOCRIT 43.6 % (36.0-47.0); HEMOGLOBIN 15.2 g/dl (12.0-15.5); LYMPH # 2.3 10^3/uL (1.5-5.0); LYMPH % 30.8 % (24.0-44.0); MEAN CORPUSCULAR HGB CONC 34.9 g/dl (32.0-36.5); MEAN CORPUSCULAR VOLUME 100.5 fl (80.0-96.0); MONO # 0.8 10^3/uL (0.0-0.8); MONO % 10.8 % (2.0-8.0); NEUTROPHILS # 3.9 10^3/uL (1.5-8.5); NEUTROPHILS % 52.7 % (36.0-66.0); PLATELET COUNT, AUTOMATED 247 10^3/uL (150-450); RED BLOOD COUNT 4.34 10^6/uL (4.00-5.40); WHITE BLOOD COUNT 7.4 10^3/uL (4.0-10.0)
[2024-01-27 13:42] LABS: HEPATITIS B SURFACE ANTIBODY NEGATIVE (POSITIVE); IRON (FE) 96 UG/DL (50-170); PERCENT SATURATION 35.6 % (13.2-45.0); TOTAL IRON BINDING CAPACITY 270 UG/DL (250-425)
[2024-01-27 13:43] LABS: ALBUMIN 3.6 G/DL (3.2-5.2); ALKALINE PHOSPHATASE 69 U/L (46-116); ALT/SGPT 44 U/L (7.0-40); AST/SGOT 21 U/L (<34); BILIRUBIN,TOTAL 0.6 MG/DL (0.3-1.2); BLOOD UREA NITROGEN 18 MG/DL (9-23); CALCIUM LEVEL 9.4 MG/DL (8.3-10.6); CARBON DIOXIDE LEVEL 30 MMOL/L (20-31); CHLORIDE LEVEL 108 MMOL/L (98-107); CHOLESTEROL LEVEL 128 MG/DL (<200); CHOLESTEROL RISK RATIO 2.71 (<5); CREATININE FOR GFR 0.75 MG/DL (0.55-1.30); GLOMERULAR FILTRATION RATE > 60.0 (>45); GLUCOSE, FASTING 93 MG/DL (74-106); HDL CHOLESTEROL 47.1 MG/DL (>40); IMMUNOGLOBULIN G 1021 MG/DL (650-1600); LDL CHOLESTEROL 55.5 MG/DL (<100); NON-HDL-C 80.9 MG/DL; POTASSIUM SERUM 3.8 MMOL/L (3.5-5.1); SODIUM LEVEL 145 MMOL/L (136-145); TOTAL PROTEIN 6.5 G/DL (5.7-8.2); TRIGLYCERIDES LEVEL 127 MG/DL (<150)
[2024-01-27 13:54] LABS: HEPATITIS B SURFACE ANTIGEN NEGATIVE (NEGATIVE)
[2024-01-27 13:55] LABS: INR 0.99; PROTHROMBIN TIME 12.8 SECONDS (12.5-14.5)
[2024-01-27 14:16] LABS: HEPATITIS C VIRUS ABY INDEX < 0.02 INDEX (<0.8)
[2024-01-29 03:06] LABS: ALPHA 1 ANTITRYPSIN 129 mg/dL (101-187); ANTI-MITOCHONDRIAL ANTIBODY <20.0 Units (0.0-20.0); ANTINUCLEAR ANTIBODIES DIRECT Negative (Negative); HEPATITIS B CORE ANTIBODY IGG Negative (Negative); TISSUE TRANSGLUTAMINASE IgA <2 U/mL (0-3)
== END ==
LOC: M SFHCADAM 08:52
PROVIDERS: ATTEND Family Medicine
DX: K76.0 Fatty (change of) liver, not elsewhere classified (principal); Z11.59 Encounter for screening for other viral diseases; Z72.89 Other problems related to lifestyle

== ENCOUNTER → 2024-10-19 | Outpatient (CLI) | payer MEDICARE, BC ==
[~2024-10-19] MED LIST changes: -FEXO-157 PO; +FEXO-63 PO
== END ==
LOC: M WHC 10:44
PROVIDERS: ATTEND Family Medicine
DX: Z12.31 Encounter for screening mammogram for malignant neoplasm of breast (principal); R92.313 Mammographic fatty tissue density, bilateral breasts

== ENCOUNTER → 2024-11-22 | Outpatient (CLI) | payer MEDICARE, BC | LOC: M PLAIMG 10:03 | PROVIDERS: ATTEND Internal Medicine Pulmonary Disease | DX: Z85.118 Personal history of other malignant neoplasm of bronchus and lung (principal) ==

== ENCOUNTER → 2024-11-29 | Outpatient (REF) | payer MEDICARE, BC ==
[2024-11-29 14:13] LABS: BASO # 0.1 10^3/uL (0.0-0.2); BASO % 1.1 % (0.0-1.0); EOS # 0.3 10^3/uL (0.0-0.5); EOS % 2.8 % (0.0-3.0); HEMATOCRIT 43.8 % (36.0-47.0); HEMOGLOBIN 14.9 g/dl (12.0-15.5); LYMPH # 2.8 10^3/uL (1.5-5.0); LYMPH % 27.3 % (24.0-44.0); MEAN CORPUSCULAR HEMOGLOBIN 33.7 pg (27.0-33.0); MEAN CORPUSCULAR VOLUME 99.1 fl (80.0-96.0); MONO # 1.2 10^3/uL (0.0-0.8); MONO % 11.9 % (2.0-8.0); NEUTROPHILS # 5.8 10^3/uL (1.5-8.5); NEUTROPHILS % 56.4 % (36.0-66.0); PLATELET COUNT, AUTOMATED 293 10^3/uL (150-450); RED BLOOD COUNT 4.42 10^6/uL (4.00-5.40); WHITE BLOOD COUNT 10.2 10^3/uL (4.0-10.0)
[2024-11-29 14:42] LABS: ALBUMIN 3.6 G/DL (3.2-5.2); ALKALINE PHOSPHATASE 72 U/L (35-104); ALT/SGPT 22 U/L (7.0-40); AST/SGOT 19 U/L (<34); BILIRUBIN,TOTAL 0.7 MG/DL (0.3-1.2); BLOOD UREA NITROGEN 17 MG/DL (9-23); CALCIUM LEVEL 9.5 MG/DL (8.3-10.6); CARBON DIOXIDE LEVEL 31 MMOL/L (20-31); CHLORIDE LEVEL 104 MMOL/L (98-107); CHOLESTEROL LEVEL 134 MG/DL (<200); CHOLESTEROL RISK RATIO 3.01 (<5); CREATININE FOR GFR 0.82 MG/DL (0.55-1.30); GLOMERULAR FILTRATION RATE > 60.0 (>45); GLUCOSE, FASTING 102 MG/DL (74-106); HDL CHOLESTEROL 44.4 MG/DL (>40); LDL CHOLESTEROL 58.2 MG/DL (<100); NON-HDL-C 89.6 MG/DL; POTASSIUM SERUM 3.9 MMOL/L (3.5-5.1); SODIUM LEVEL 143 MMOL/L (136-145); TRIGLYCERIDES LEVEL 157 MG/DL (<150)
[2024-11-29 14:43] LABS: THYROID STIMULATING HORMONE 2.175 uIU/ML (0.55-4.78)
[2024-11-29 14:44] LABS: FREE T4 1.21 NG/DL (0.89-1.76)
== END ==
LOC: M SFHCADAM 08:47
PROVIDERS: ATTEND Family Medicine
DX: Z00.00 Encounter for general adult medical examination without abnormal findings (principal); Z79.899 Other long term (current) drug therapy

== ENCOUNTER → 2024-12-25 | Outpatient (CLI) | payer MEDICARE, BC | LOC: M PLARAD 10:00 | PROVIDERS: ATTEND Internal Medicine Pulmonary Disease | DX: R91.8 Other nonspecific abnormal finding of lung field (principal) | CPT/HCPCS: 78815; A9552 ==

== ENCOUNTER → 2025-03-18 | Outpatient (CLI) | payer MEDICARE, BC | LOC: M PLAIMG 08:35 | PROVIDERS: ATTEND Surgery | DX: R91.1 Solitary pulmonary nodule (principal); Z90.2 Acquired absence of lung [part of] ==